=== PATIENT | female | born 1960 | race Caucasian/White ===

== ENCOUNTER → 2017-01-31 | Outpatient (CLI) | payer OTHER ==
[~2017-01-31] MED LIST: CIPR-225 PO; CIPR500T78 PO; LEVO250T7 PO; LEVO750T6 PO; METR500T PO; OMEP20TA2 PO; SERT50TA2 PO
--- NOTE | 2017-01-31 11:37 | Diagnostic Imaging Report ---
PA and lateral views of the chest Indication: COPD. Comparison 01/02/15. Findings: The lungs are hyperinflated but clear. The heart size is normal. There is no effusion or pneumothorax The mediastinum and yves appear unremarkable. Impression: Hyperinflated clear lungs. Dictated by: Dictated on workstation # [id number]
== END ==
LOC: RAD 10:18
PROVIDERS: ATTEND Surgery
DX: J44.9 Chronic obstructive pulmonary disease, unspecified (principal)
CPT/HCPCS: 71020

== ENCOUNTER 2018-04-21 14:10 | Emergency (ER) | payer MEDICAID, OTHER ==
[~2018-04-21] VITALS: Ht 162.6 cm; Wt 36.3 kg
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
--- OUTSIDE RECORDS SUMMARY | 2018-04-21 14:16 | XMS REPORT ---
Author Author MAYTE MORELAND Organization [facility] Address [address] [place] [address] Care Team Providers Care Cloth Picker Name Role Phone MAYTE MORELAND Unavailable PROBLEMS Type Condition ICD9-CM Code [id number] Code Onset Dates Condition Status SNOMED Code Problem Chronic post-traumatic stress disorder (PTSD) F43.12 Active 599929531 Problem Tetrahydrocannabinol (THC) use disorder, mild, abuse F12.10 Active 21011191 Problem 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 Active 47688245507503542 Problem Bilateral cataracts H26.9 Active 19158664 Problem Alcohol use Z78.9 Active 728387629 Problem Bipolar disorder, unspecified F31.9 Active 52503045 Problem MELIDA (generalized anxiety disorder) F41.1 Active 72090270 Problem Tobacco abuse Z72.0 Active 433926555 Problem Cannabis use disorder, mild, abuse F12.10 Active 38419330 Problem Methamphetamine use disorder, 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 Active 469977212 Problem Suspected chronic obstructive pulmonary disease based on initial evaluation J44.9 Active 865516080 Problem Benzodiazepine abuse F13.10 Active 819775140 Problem Alcohol use disorder, moderate, dependence F10.20 Active 215432979 ALLERGIES No Information ENCOUNTERS Encounter Location Date Diagnosis [facility] [address] [facility] [id number] [address] Mar, [facility] [address] [facility] [id number][place] [id number] Feb, Tobacco abuse Z72.0 [facility] [address] [facility] [id number][place] [id number] 19 Dec, 2017 Suspected chronic obstructive pulmonary disease based on initial evaluation J44.9 [facility] [address] [facility] [id number][place] [id number] 18 Dec, 2017 Hospital discharge follow-up Z09 and Tobacco abuse Z72.0 [facility] [address] [place] [id number] [address] Dec, MELIDA (generalized anxiety disorder) F41.1 ; Bipolar disorder , unspecified F31.9 ; Chronic post-traumatic stress disorder (PTSD) F43.12 ; 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 ; Cannabis use disorder, mild, abuse F12.10 ; Alcohol use disorder, moderate, dependence F10.20 and Benzodiazepine abuse F13.10 [place] [id number] [place] [address] [id number] Nov, [facility] [address] [place] [id number] [place] [address] [id number]- 6475 Nov, MELIDA (generalized anxiety disorder) F41.1 ; Bipolar disorder , unspecified F31.9 ; Chronic post-traumatic stress disorder (PTSD) F43.12 ; Methamphetamine use disorder, 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 ; Cannabis use disorder, mild, abuse F12.10 ; Alcohol use disorder, moderate, dependence F10.20 and Benzodiazepine abuse F13.10 [place] [id number] [place] [address] [id number] Oct, MELIDA (generalized anxiety disorder) F41.1 ; Bipolar disorder, unspecified F31.9 ; Chronic post-traumatic stress disorder (PTSD) F43.12 and Suspected chronic obstructive pulmonary disease based on initial evaluation J44.9 [place] [id number] [place] [address] [id number] August, [place] [id number] [place] [address] [id number] Jul, [place] [id number] [place] [address] [id number] Jul, Well woman exam with routine gynecological exam Z01.419 ; Screening breast examination Z12.31 ; High risk sexual behavior Z72.51 and Colon cancer screening Z12.11 [place] [id number] [place] [address] [id number] Jul, Suspected chronic obstructive pulmonary disease based on initial evaluation J44.9 [place] [id number] [place] [address] [id number] Jul, Bipolar disorder, unspecified F31.9 ; MELIDA (generalized anxiety disorder) F41.1 ; Chronic post-traumatic stress disorder (PTSD) F43.12 ; Alcohol use Z78.9 ; History of hepatitis C Z86.19 ; 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 ; Tetrahydrocannabinol (THC) use disorder, mild, abuse F12.10 ; Suspected chronic obstructive pulmonary disease based on initial evaluation J44.9 ; Tobacco abuse Z72.0 and Tobacco abuse counseling Z71.6 [place] [address] [place] [id number] [place] [address] 49896- 4089 Jul, [place] [address] [place] [id number] [place] [address] 13137- 2999 May, [place] [address] [place] [id number] [place] [address] 91649- 1192 Apr, [place] [address] [place] [id number] [place] [address] 33566- 5694 Mar, [place] [address] [place] [id number] [place] [address] 00478- 4999 Mar, [place] [address] [place] [id number] [place] [address] 48173- 7936 Mar, Bipolar disorder, unspecified F31.9 ; Chronic post- traumatic stress disorder (PTSD) F43.12 ; MELIDA (generalized anxiety disorder) F41.1 and Alcohol use Z78.9 [place] [address] [place] [address] 64251- 1762 Jan, Bipolar disorder, unspecified F31.9 ; MELIDA (generalized anxiety disorder) F41.1 ; Alcohol use Z78.9 and Chronic post-traumatic stress disorder (PTSD) F43.12 [place] [address] [place] [id number] [place] [address] 70269- 0591 Dec, UTI (urinary tract infection) 599.0 and Indigestion 536.8 [place] [address] [place] [id number] [place] [address] 11209- 7792 Dec, [place] [address] [place] [id number] [place] [address] [id number] 2389 Nov, Change in vision 368.9 ; Hep C w/o coma, chronic 070.54 ; Family history of early CAD V17.3 and Family history of diabetes mellitus V18.0 [facility] [address] [place] [address] [id number] [place] [address] 19213- 5883 Nov, Encounter to establish care V65.8 ; Hepatitis C 070.70 ; Alcohol abuse 305.00 ; Drug abuse 305.90 and Anxiety 300.00 [facility] [address] [place] [id number] [place] [address] 91368- 0413 Nov, Depressive disorder, not elsewhere classified 311 ; Anxiety disorder, unspecified 300.00 and Alcoholism in recovery 303.90 [facility] [address] [place] [id number] [place] [address] 13676- 5530 Oct, Depressive disorder, not elsewhere classified 311 ; Anxiety disorder, unspecified 300.00 and Alcoholism in recovery 303.90 [facility] [id number] [place] [address] [id number] August, [facility] [address] [id number] [place] [address] [id number] Jul, [facility] [address] [place] [address] [id number] [place] [address] 48439- 7847 Jul, [facility] [address] [place] [id number] [place] [address] 73572- 8145 Jul, [facility] [id number] [place] [address] [id number] Apr, [facility] [address] [place] [id number] [place] [address] 88509 2546 Apr, [facility] [id number] [place] [address] [id number] Mar, [facility] [address] [place] [address] [id number] [place] [address] 06779 2546 Mar, [facility] [id number] [place] [address] [id number] Feb, [facility] [address] [facility] [id number] [address]- 1686 Feb, [facility] [address] [id number] [place] [id number] Feb, [facility] [address] [facility] [id number] [place] [address]- 2546 Feb, [facility] [address] [id number][place] [id number] Jan, [facility] [address] [facility] [id number] [address] 2546 Jan, [facility] [address] [facility] [id number][place] [id number] Jan, [facility] [address] [facility] [id number] [place] [address]- 6776 Jan, [facility] [address]65[address] [address]- 1418 Oct, [facility] [address] [facility] [id number] [place] [address]- 2912 Jul, [facility] [address] [place] [id number] [address]- 3544 Jun, [facility] [address] [place] [id number] [address]- 7302 May, [facility] [address] [place] [id number] [address]- 6517 May, [facility] [address] [facility] [id number] [place] [address]- 3195 May, [facility] [address] [facility] [id number] [address]- 9336 Apr, [facility] [address] [id number] [place] [id number] Apr, [facility] [address] [id number][place] [id number] Apr, [facility] [address] [id number] [place] [id number] Apr, [facility] [address] [facility] [id number] [place] [phone] Apr, [facility] [address] [id number] [address]- 4109 Mar, [facility] [address] [address]- 9450 Mar, [facility] [address] [id number] [address]- 5710 Mar, [facility] [address] [address]- 7183 Feb, [facility] [address] [id number] [address]- 1135 Feb, [facility] [address] [id number] [address]- 9943 Feb, IMMUNIZATIONS No Known Immunizations SOCIAL HISTORY Never Assessed REASON FOR VISIT PLAN OF CARE VITAL SIGNS MEDICATIONS Unknown Medications RESULTS No Results PROCEDURES No Known procedures [...]
--- OUTSIDE RECORDS SUMMARY | 2018-04-21 14:16 | XMS REPORT ---
Author Author JESSA MATTA [facility] Address [address] [place] [address] Care Team Providers Care Race Board Attendant Name Role Phone JESSA MATTA Unavailable PROBLEMS Type Condition ICD9-CM Code OXT40-UD Code Onset Dates Condition Status SNOMED Code Problem Chronic post-traumatic stress disorder (PTSD) F43.12 Active 385075236 Problem Tetrahydrocannabinol (THC) use disorder, mild, abuse F12.10 Active 74689358 Problem 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 Active [id number] Problem Bilateral cataracts H26.9 Active 52553611 Problem Alcohol use Z78.9 Active 567835286 Problem Bipolar disorder, unspecified F31.9 Active 88360102 Problem MELIDA (generalized anxiety disorder) F41.1 Active 19105988 Problem Tobacco abuse Z72.0 Active 065503580 Problem Cannabis use disorder, mild, abuse F12.10 Active 80219850 Problem Methamphetamine use disorder, 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 [id number] [address] Mar, [facility] [address] [facility] [id number] [id number] 19 Dec, 2017 Suspected chronic obstructive pulmonary disease based on initial evaluation J44.9 [facility] [address] [id number] [id number] 18 Dec, 2017 Hospital discharge follow-up Z09 and Tobacco abuse Z72.0 [facility] [address] [id number] [address] Dec, MELIDA (generalized anxiety disorder) F41.1 ; Bipolar disorder , unspecified F31.9 ; Chronic post-traumatic stress disorder (PTSD) F43.12 ; 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 ; Cannabis use disorder, mild, abuse F12.10 ; Alcohol use disorder, moderate, dependence F10.20 and Benzodiazepine abuse F13.10 [facility] [address] [place] [address] [id number] Nov, [facility] [address] [place] [address]1993- 7141 Nov, MELIDA (generalized anxiety disorder) F41.1 ; Bipolar disorder , unspecified F31.9 ; Chronic post-traumatic stress disorder (PTSD) F43.12 ; Methamphetamine use disorder, 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 ; Cannabis use disorder, mild, abuse F12.10 ; Alcohol use disorder, moderate, dependence F10.20 and Benzodiazepine abuse F13.10 [address] [place] [address] [id number] Oct, MELIDA (generalized anxiety disorder) F41.1 ; Bipolar disorder, unspecified F31.9 ; Chronic post-traumatic stress disorder (PTSD) F43.12 and Suspected chronic obstructive pulmonary disease based on initial evaluation J44.9 [id number] [place] [address] [id number] August, [address] [id number] [place] [address] [id number] Jul, [place] [id number] [place] [address] [id number] Jul, Well woman exam with routine gynecological exam Z01.419 ; Screening breast examination Z12.31 ; High risk sexual behavior Z72.51 and Colon cancer screening Z12.11 [address] [place] [address] [id number] Jul, Suspected chronic obstructive pulmonary disease based on initial evaluation J44.9 [id number] [place] [address] [id number] Jul, Bipolar disorder, unspecified F31.9 ; MELIDA (generalized anxiety disorder) F41.1 ; Chronic post-traumatic stress disorder (PTSD) F43.12 ; Alcohol use Z78.9 ; History of hepatitis C Z86.19 ; 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 ; Tetrahydrocannabinol (THC) use disorder, mild, abuse F12.10 ; Suspected chronic obstructive pulmonary disease based on initial evaluation J44.9 ; Tobacco abuse Z72.0 and Tobacco abuse counseling Z71.6 [place] [id number] [place] [address] 51568- 4952 Jul, [place] [address] [address] May, [place] [id number] [place] [address] 50644- 2434 Apr, [place] [address] [address]- [address]459 Mar, [place] [address] [address]- [address] Mar, [place] [address] [address]68- 7779 Mar, Bipolar disorder, unspecified F31.9 ; Chronic post- traumatic stress disorder (PTSD) F43.12 ; MELIDA (generalized anxiety disorder) F41.1 and Alcohol use Z78.9 [place] [id number] [place] [address] 75316- 0616 Jan, Bipolar disorder, unspecified F31.9 ; MELIDA (generalized anxiety disorder) F41.1 ; Alcohol use Z78.9 and Chronic post-traumatic stress disorder (PTSD) F43.12 [place] [id number] [place] [address] 32945- 5027 Dec, UTI (urinary tract infection) 599.0 and Indigestion 536.8 [place] [id number] [place] [address] 38096- 7889 Dec, [place] [id number] [place] [address] 38492- 9239 Nov, Change in vision 368.9 ; Hep C w/o coma, chronic 070.54 ; Family history of early CAD V17.3 and Family history of diabetes mellitus V18.0 [facility] [id number] [place] [address] 76635- 2546 Nov, Encounter to establish care V65.8 ; Hepatitis C 070.70 ; Alcohol abuse 305.00 ; Drug abuse 305.90 and Anxiety 300.00 [facility] [id number] [place] [address] 79949- 7633 Nov, Depressive disorder, not elsewhere classified 311 ; Anxiety disorder, unspecified 300.00 and Alcoholism in recovery 303.90 [facility] [id number] [place] [address] 26385- 2896 Oct, Depressive disorder, not elsewhere classified 311 ; Anxiety disorder, unspecified 300.00 and Alcoholism in recovery 303.90 [facility] [id number] [place] [address] [id number] August, [facility] [id number] [place] [address] [id number] Jul, [facility] [id number] [place] [address] 83807- 9600 Jul, [facility] [id number] [place] [address] 64640- 5429 Jul, [facility] [address] [place] [address] [id number] Apr, [facility] [id number] [place] [address] 37605- 5066 Apr, [facility] [id number] [place] [address] [id number] Mar, [facility] [id number] [place] [address] 52071- 2680 Mar, [facility] [id number] [place] [address] [id number] Feb, [facility] [id number] [place] [address] 32150- 3566 Feb, [facility] [address] [id number] [place] [id number] Feb, [facility] [address] [facility] [id number], [place] [address] Feb, [facility] [address] [id number] [place] [id number] Jan, [facility] [address] [facility] [id number], [place] [address] Jan, [facility] [address] [id number] [id number] Jan, [facility] [place] [facility] [address] [facility] [id number] [place] [address] 3[address] Jan, [facility] [place] [facility] [address] [facility] [id number], [place] [address]- 7694 Oct, [facility] [place] [facility] [address], [place] [address] Jul, [facility] [place] [facility] [address] [facility] [id number], [place] [address]- 7909 Jun, [facility] [place] [facility] [address] [id number], [place] [address]24 May, [facility] [place] [facility] [address] [facility] [id number], [place] [address] 7270 May, [facility] [place] [facility] [address] [facility] [id number], [place] [address]- 2[address] May, [facility] [place] [facility] [address] [facility] [id number], [place] [address]797 Apr, [facility] [address] [id number] [place] [id number] Apr, [facility] [address] [id number] [place] [id number] Apr, [facility] [address] [id number] [place] [id number] Apr, [facility] [address] [id number] [id number] Apr, [facility] [address] [facility] [id number], [place] [address]- [address] Mar, [facility] [address] [id number], [place] [address] 3678 Mar, [facility] [address] [facility] [id number], [place] [address]- 9344 Mar, [facility] [address], [place] [address] 38[address] Feb, [facility] [address] [id number], [place] [address]- 0444 Feb, [facility] [address] [id number], [place] [address] 0500 Feb, IMMUNIZATIONS No Known Immunizations SOCIAL HISTORY Never Assessed REASON FOR VISIT Refill request PLAN OF CARE VITAL SIGNS MEDICATIONS Medication Instructions Dosage Frequency Start Date End Date Duration Status ProAir HFA 108 (90 Base) MCG/ACT Inhalation every 6 hrs 2 puffs as needed 6h 0 days Active RESULTS No Results PROCEDURES No [...]
--- OUTSIDE RECORDS SUMMARY | 2018-04-21 14:17 | XMS REPORT ---
Author Author ANAHI CARRILLO Organization [facility] Address [address] [place] [address] Care Team Providers Care Film Vault Supervisor Name Role Phone LILLYMELVIN FOURNIERA Unavailable PROBLEMS Type Condition ICD9-CM Code IVB63-VW Code Onset Dates Condition Status SNOMED Code Problem Chronic post-traumatic stress disorder (PTSD) F43.12 Active 703535370 Problem Tetrahydrocannabinol (THC) use disorder, mild, abuse F12.10 Active 49779828 Problem 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 Active 01543121040750137 Problem Bilateral cataracts H26.9 Active 70208596 Problem Alcohol use Z78.9 Active 956983166 Problem Bipolar disorder, unspecified F31.9 Active 84913804 Problem MELIDA (generalized anxiety disorder) F41.1 Active 84685176 Problem Tobacco abuse Z72.0 Active 315543856 Problem Cannabis use disorder, mild, abuse F12.10 Active 41845459 Problem Methamphetamine use disorder, 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 Active 815296229 Problem Suspected chronic obstructive pulmonary disease based on initial evaluation J44.9 Active 248530966 Problem Benzodiazepine abuse F13.10 Active 183469641 Problem Alcohol use disorder, moderate, dependence F10.20 Active 657468909 ALLERGIES No Known Allergies ENCOUNTERS Encounter Location Date Diagnosis [facility] [address] [facility] [id number] [address] Mar, [facility] [address] [facility] [id number] [id number] 19 Dec, 2017 Suspected chronic obstructive pulmonary disease based on initial evaluation J44.9 [facility] [address] [facility] [id number] [id number] 18 Dec, 2017 Hospital discharge follow-up Z09 and Tobacco abuse Z72.0 [facility] [address] [id number] [address] 13 Dec, 2017 MELIDA (generalized anxiety disorder) F41.1 ; Bipolar disorder , unspecified F31.9 ; Chronic post-traumatic stress disorder (PTSD) F43.12 ; 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 ; Cannabis use disorder, mild, abuse F12.10 ; Alcohol use disorder, moderate, dependence F10.20 and Benzodiazepine abuse F13.10 [facility] [id number] [place] [address] [id number] Nov, [facility] [address] [place] [address] 085451- 3295 Nov, MELIDA (generalized anxiety disorder) F41.1 ; Bipolar disorder , unspecified F31.9 ; Chronic post-traumatic stress disorder (PTSD) F43.12 ; Methamphetamine use disorder, 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 ; Cannabis use disorder, mild, abuse F12.10 ; Alcohol use disorder, moderate, dependence F10.20 and Benzodiazepine abuse F13.10 [address] [place] [address] [id number] Oct, MELIDA (generalized anxiety disorder) F41.1 ; Bipolar disorder, unspecified F31.9 ; Chronic post-traumatic stress disorder (PTSD) F43.12 and Suspected chronic obstructive pulmonary disease based on initial evaluation J44.9 [id number] [place] [address] [id number] August, [id number] [place] [address] [id number] Jul, [id number] [place] [address] [id number] Jul, Well woman exam with routine gynecological exam Z01.419 ; Screening breast examination Z12.31 ; High risk sexual behavior Z72.51 and Colon cancer screening Z12.11 [address] [place] [address] [id number] Jul, Suspected chronic obstructive pulmonary disease based on initial evaluation J44.9 [id number] [place] [address] [id number] Jul, Bipolar disorder, unspecified F31.9 ; MELIDA (generalized anxiety disorder) F41.1 ; Chronic post-traumatic stress disorder (PTSD) F43.12 ; Alcohol use Z78.9 ; History of hepatitis C Z86.19 ; 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 ; Tetrahydrocannabinol (THC) use disorder, mild, abuse F12.10 ; Suspected chronic obstructive pulmonary disease based on initial evaluation J44.9 ; Tobacco abuse Z72.0 and Tobacco abuse counseling Z71.6 [place] [id number] [place] [address] 06625- 3887 Jul, [place] [address] [address]- 7916 May, [place] [address] 45956- 9727 Apr, [place] [address] 75688- 5316 Mar, [place] [address] 43792- 2181 Mar, [place] [address] 29897- 9893 Mar, Bipolar disorder, unspecified F31.9 ; Chronic post- traumatic stress disorder (PTSD) F43.12 ; MELIDA (generalized anxiety disorder) F41.1 and Alcohol use Z78.9 [place] [id number] [place] [address] 49625- 7415 Jan, Bipolar disorder, unspecified F31.9 ; MELIDA (generalized anxiety disorder) F41.1 ; Alcohol use Z78.9 and Chronic post-traumatic stress disorder (PTSD) F43.12 [place] [id number] [place] [address] 35160- 0152 Dec, UTI (urinary tract infection) 599.0 and Indigestion 536.8 [place] [id number] [place] [address] 61982- 3933 Dec, [place] [id number] [place] [address] 76797- 0733 Nov, Change in vision 368.9 ; Hep C w/o coma, chronic 070.54 ; Family history of early CAD V17.3 and Family history of diabetes mellitus V18.0 [facility] [address], [place] [address]- 1146 Nov, Encounter to establish care V65.8 ; Hepatitis C 070.70 ; Alcohol abuse 305.00 ; Drug abuse 305.90 and Anxiety 300.00 [facility] [id number] [place] [address] 05073- 4700 Nov, Depressive disorder, not elsewhere classified 311 ; Anxiety disorder, unspecified 300.00 and Alcoholism in recovery 303.90 [facility] [id number] [place] [address] 32153- 9044 Oct, Depressive disorder, not elsewhere classified 311 ; Anxiety disorder, unspecified 300.00 and Alcoholism in recovery 303.90 [facility] [address] [place] [address] [id number] August, [facility] [id number] [place] [address] [id number] Jul, [facility] [id number] [place] [address] 09846- 1876 Jul, [facility] [id number] [place] [address] 55533- 1126 Jul, [facility] [address] [place] [address] [id number] Apr, [facility] [address] [place] [address] 43780 2546 Apr, [facility] [id number] [place] [address] [id number] Mar, [facility] [id number] [place] [address] 68825 2546 Mar, [facility] [address] [place] [address] [id number] Feb, [facility] [address] [place] [address] 93422- 2546 Feb, [facility] [id number] [place] [address] [id number] Feb, [facility] [address] [facility] [id number] [address]- 3906 Feb, [facility] [address] [id number] [place] [id number] Jan, [facility] [address] [facility] [id number], [place] [address]- 9306 Jan, [facility] [address] [id number] [place] [id number] Jan, [facility] [address] [facility] [id number] [place] [address]- 9678 Jan, [facility] [place] [facility] [address] [facility] [id number], [place] [address]- 1854 Oct, [facility] [address], [place] [address]- 8398 Jul, [facility] [place] [facility] [address]100[place], [place] [address]- 7082 Jun, [facility] [address] [id number], [place] [address]- 5985 May, [facility] [place] [facility] [address] [id number], [place] [address]- 2145 May, [facility] [address], [place] [address]- 5366 May, [facility] [place] [facility] [address] [facility] [id number], [place] [address]- 4303 Apr, [facility] [address] [id number] [place] [id number] Apr, [facility] [address] [id number] [place] [id number] Apr, [facility] [address] [id number] [place] [id number] Apr, [facility] [address] [id number] [place] [id number] Apr, [facility] [address] [facility] [id number][place] [address]- 8448 Mar, [facility] [address] [facility] [id number][place] [address]- 1870 Mar, [facility] [address] [facility] [id number], [place] [address]- 5023 Mar, [facility] [address] [id number], [place] [address]- 3836 Feb, [facility] [address] [facility] [id number][place] 1275[place]- 2163 Feb, [facility] [address] [facility] [id number], [place] [address]- 3630 Feb, IMMUNIZATIONS No Known Immunizations SOCIAL HISTORY Never Assessed REASON FOR VISIT intake [place] PLAN OF CARE Activity Details Follow Up 4 Weeks Reason: VITAL SIGNS Height 65 in 2017-12-04 Weight 94.6 lbs 2017-12-04 Heart Rate 72 bpm 2017-12-04 Respiratory Rate 18 2017-12-04 BMI 15.74 kg/m2 2017-12-04 Blood pressure systolic 144 mmHg 2017-12-04 Blood pressure diastolic 80 mmHg 2017-12-04 MEDICATIONS Medication Instructions Dosage Frequency Start Date End Date Duration Status Abilify 30 MG Orally Once a day 1 tablet 24h 30 days Active ProAir HFA 108 (90 Base) MCG/ACT Inhalation every 6 hrs 2 puffs as needed 6h 0 days Active BuSpar 15 MG Orally Three times a day 1 tablet 8h Oct, 30 days Active RESULTS No Results PROCEDURES [...]
--- OUTSIDE RECORDS SUMMARY | 2018-04-21 14:17 | XMS REPORT ---
Author Author MAYTE MORELAND Organization [facility] Address [address] [place] [address] Care Team Providers Care Pulp Cooker Name Role Phone MAYTE MORELAND Unavailable PROBLEMS Type Condition ICD9-CM Code [id number] Code Onset Dates Condition Status SNOMED Code Problem Bipolar disorder, unspecified F31.9 Active 08309767 Problem 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 Active [id number] Problem Chronic post-traumatic stress disorder (PTSD) F43.12 Active 215152168 Problem Bilateral cataracts H26.9 Active 23086587 Problem Alcohol use Z78.9 Active 907391897 Problem MELIDA (generalized anxiety disorder) F41.1 Active 62152845 Problem Cannabis use disorder, mild, abuse F12.10 Active 35851441 Problem Benzodiazepine abuse F13.10 Active 661444126 Problem Tetrahydrocannabinol (THC) use disorder, mild, abuse F12.10 Active 05903388 Problem Suspected chronic obstructive pulmonary disease based on initial evaluation J44.9 Active 500766823 Problem Alcohol use disorder, moderate, dependence F10.20 Active 159280913 Problem Methamphetamine use disorder, 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 Active 390642078 ALLERGIES No Information ENCOUNTERS Encounter Location Date Diagnosis [place] [address] [facility] [id number] [id number] [address] Mar, [facility] [address] [facility] [id number] [id number] Dec, [facility] [id number] [place] [address] [id number]- 9338 Dec, MELIDA (generalized anxiety disorder) F41.1 ; Bipolar disorder , unspecified F31.9 ; Chronic post-traumatic stress disorder (PTSD) F43.12 ; 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 ; Cannabis use disorder, mild, abuse F12.10 ; Alcohol use disorder, moderate, dependence F10.20 and Benzodiazepine abuse F13.10 [facility] [address] [id number] [id number] Nov, [facility] [address]100[place] [address] Nov, MELIDA (generalized anxiety disorder) F41.1 ; Bipolar disorder , unspecified F31.9 ; Chronic post-traumatic stress disorder (PTSD) F43.12 ; Methamphetamine use disorder, 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 ; Cannabis use disorder, mild, abuse F12.10 ; Alcohol use disorder, moderate, dependence F10.20 and Benzodiazepine abuse F13.10 [facility] [address] [id number] [id number] Oct, MELIDA (generalized anxiety disorder) F41.1 ; Bipolar disorder, unspecified F31.9 ; Chronic post-traumatic stress disorder (PTSD) F43.12 and Suspected chronic obstructive pulmonary disease based on initial evaluation J44.9 [facility] [address]00565100[place] [id number] August, [facility] [address]00565100[place] [id number] Jul, [address] [place] [id number] Jul, Well woman exam with routine gynecological exam Z01.419 ; Screening breast examination Z12.31 ; High risk sexual behavior Z72.51 and Colon cancer screening Z12.11 [address]00565100[place] [id number] Jul, Suspected chronic obstructive pulmonary disease based on initial evaluation J44.9 [place] [id number] [place] [address] [id number] Jul, Bipolar disorder, unspecified F31.9 ; MELIDA (generalized anxiety disorder) F41.1 ; Chronic post-traumatic stress disorder (PTSD) F43.12 ; Alcohol use Z78.9 ; History of hepatitis C Z86.19 ; 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 ; Tetrahydrocannabinol (THC) use disorder, mild, abuse F12.10 ; Suspected chronic obstructive pulmonary disease based on initial evaluation J44.9 ; Tobacco abuse Z72.0 and Tobacco abuse counseling Z71.6 [place] [address]00565100[place] [address] Jul, [place] [address] [id number] [place] [address] 17998- 6610 May, [place] [address] [place] [address] 59087- 8100 Apr, [place] [id number] [place] [address] 52620- 7986 Mar, [place] [address] [place] [address] 85050- 9070 Mar, [place] [address] [id number] [place] [address] 83790- 1723 Mar, Bipolar disorder, unspecified F31.9 ; Chronic post- traumatic stress disorder (PTSD) F43.12 ; MELIDA (generalized anxiety disorder) F41.1 and Alcohol use Z78.9 [place] [address] [id number] [place] [address] 04102- 5921 Jan, Bipolar disorder, unspecified F31.9 ; MELIDA (generalized anxiety disorder) F41.1 ; Alcohol use Z78.9 and Chronic post-traumatic stress disorder (PTSD) F43.12 [place] [address] [place] [address] 22641- 7403 Dec, UTI (urinary tract infection) 599.0 and Indigestion 536.8 [place] [address] [place] [address] 59413- 5959 Dec, [place] [address] [place] [address] 84706- 8073 Nov, Change in vision 368.9 ; Hep C w/o coma, chronic 070.54 ; Family history of early CAD V17.3 and Family history of diabetes mellitus V18.0 [address] [place] [address] 16356- 7642 11 Nov, 2014 Encounter to establish care V65.8 ; Hepatitis C 070.70 ; Alcohol abuse 305.00 ; Drug abuse 305.90 and Anxiety 300.00 [facility] [address]005[address]100[place] [address] Nov, Depressive disorder, not elsewhere classified 311 ; Anxiety disorder, unspecified 300.00 and Alcoholism in recovery 303.90 [facility] [id number] [place] [address] 12633- 3946 Oct, Depressive disorder, not elsewhere classified 311 ; Anxiety disorder, unspecified 300.00 and Alcoholism in recovery 303.90 [facility] [id number] [id number] August, [facility] [id number] [place] [address] [id number] Jul, [facility] [id number] [place] [address] 83853- 6796 Jul, [facility] [id number] [place] [address] 14628- 3176 Jul, [facility] [id number], [place] [id number] Apr, [facility] [address] [place] [address] 325536 Apr, [facility] [id number], [place] [id number] Mar, [facility] [address]005[address]100[place] [address] Mar, [facility] [id number], [place] [id number] Feb, [facility] [address]005[address]100[place], [place] [address] 2546 Feb, [facility] [id number], [place] [id number] Feb, [facility] [address]005[address]100[place], [place] [address] 2546 Feb, [facility] [address] [id number] [id number] Jan, [facility] [address] [id number] [place] [address] Jan, [facility] [address] [facility] [id number] [place] [id number] Jan, [facility] [place] [facility] [address] [facility] [id number] [place] [address]- 2624 Jan, [facility] [place] [facility] [address] [facility] [id number] [place] [address]- 7515 Oct, [facility] [place] [facility] [address] [facility] [id number] [place] [address]- 7107 Jul, [facility] [place] [facility] [address] [facility] [id number] [place] [address]- 8417 Jun, [facility] [place] [facility] [address]005[address], [place] [address] 3988 May, [facility] [place] [facility] [address] [id number] [address] 1996 May, [facility] [place] [facility] [address]005[address], [place] [address]- 3898 May, [facility] [place] [facility] [address]00565100[place], [place] [address]- 1205 Apr, [facility] [address] [id number] [place] [id number] Apr, [facility] [address] [facility] [id number], [place] [id number] Apr, [facility] [address] [id number] [place] [id number] Apr, [facility] [address] [facility] [id number] [place] [id number] Apr, [facility] [place] [facility] [address] [facility] [id number], [place] [address]- 0989 Mar, [facility] [place] [facility] [address]005[address]100[place] [address]04[address] 6404 Mar, [facility] [address] [facility] [id number] [place] [address]- 1058 Mar, [facility] [address] [facility] [id number], [place] [address]- 0296 Feb, [facility] [address] [facility] [id number][place] [address]- 1089 Feb, [facility] [address] [facility] [id number][place] [address]- 4409 Feb, IMMUNIZATIONS No Known Immunizations SOCIAL HISTORY Never Assessed REASON FOR VISIT PALS received PLAN OF CARE VITAL SIGNS MEDICATIONS Unknown [...]
--- OUTSIDE RECORDS SUMMARY | 2018-04-21 14:17 | XMS REPORT ---
Author Author MAYTE MORELAND Organization 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 Active 53162391773253255 Problem Tetrahydrocannabinol (THC) use disorder, mild, abuse F12.10 Active 48043200 Problem Chronic post-traumatic stress disorder (PTSD) F43.12 Active 516345746 Problem Bipolar disorder, unspecified F31.9 Active 74288259 Problem Suspected chronic obstructive pulmonary disease based on initial evaluation J44.9 Active 656787804 Problem Alcohol use Z78.9 Active 335232898 ALLERGIES No Information ENCOUNTERS Encounter Location Date Diagnosis [facility] [address] [id number] [address] Nov, [facility] [id number] [place] [address] [id number] Oct, MELIDA (generalized anxiety disorder) F41.1 ; Bipolar disorder, unspecified F31.9 ; Chronic post-traumatic stress disorder (PTSD) F43.12 and Suspected chronic obstructive pulmonary disease based on initial evaluation J44.9 [facility] [id number] [id number] August, [facility] [id number] [place] [address] [id number] Jul, [facility] [id number] [place] [address] [id number] Jul, Well woman exam with routine gynecological exam Z01.419 ; Screening breast examination Z12.31 ; High risk sexual behavior Z72.51 and Colon cancer screening Z12.11 [facility] [address] [facility] [id number] [place] [id number] Jul, Suspected chronic obstructive pulmonary disease based on initial evaluation J44.9 [facility] [address] [place] [address] [id number] [place] [id number] Jul, Bipolar disorder, unspecified F31.9 ; MELIDA (generalized anxiety disorder) F41.1 ; Chronic post-traumatic stress disorder (PTSD) F43.12 ; Alcohol use Z78.9 ; History of hepatitis C Z86.19 ; 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 ; Tetrahydrocannabinol (THC) use disorder, mild, abuse F12.10 ; Suspected chronic obstructive pulmonary disease based on initial evaluation J44.9 ; Tobacco abuse Z72.0 and Tobacco abuse counseling Z71.6 [place] [address] [place] [id number] [place] [address] 91915- 7956 Jul, [place] [address] [address] [id number] [place] [address] 55237- 7240 14 May, 2016 [place] [address] [id number] [place] [address] 39371- 4395 Apr, [place] [address] [id number] [place] [address] 50202- 6152 Mar, [place] [id number] [place] [address] 22668- 5437 Mar, [place] [address] [address] [id number] [place] [address] 33824- 5617 Mar, Bipolar disorder, unspecified F31.9 ; Chronic post- traumatic stress disorder (PTSD) F43.12 ; MLEIDA (generalized anxiety disorder) F41.1 and Alcohol use Z78.9 [place] [address] [id number] [place] [address] 58512- 3865 Jan, Bipolar disorder, unspecified F31.9 ; MELIDA (generalized anxiety disorder) F41.1 ; Alcohol use Z78.9 and Chronic post-traumatic stress disorder (PTSD) F43.12 [place] [address] [id number] [address]- [address] Dec, UTI (urinary tract infection) 599.0 and Indigestion 536.8 [facility] [id number] [place] [address] 53146- 6553 Dec, [facility] [address] [place] [address] 82459- 2719 Nov, Change in vision 368.9 ; Hep C w/o coma, chronic 070.54 ; Family history of early CAD V17.3 and Family history of diabetes mellitus V18.0 [place] [address] [id number] [place] [address] 31832- 8281 Nov, Encounter to establish care V65.8 ; Hepatitis C 070.70 ; Alcohol abuse 305.00 ; Drug abuse 305.90 and Anxiety 300.00 [place] [id number] [place] [address] 57335- 8140 Nov, Depressive disorder, not elsewhere classified 311 ; Anxiety disorder, unspecified 300.00 and Alcoholism in recovery 303.90 [facility] [id number] [place] [address] 16965- 2046 Oct, Depressive disorder, not elsewhere classified 311 ; Anxiety disorder, unspecified 300.00 and Alcoholism in recovery 303.90 [address]00565100[place] [id number] August, [address] [place] [address] [id number] Jul, [facility] [address] [place] [address] 01035- 8841 Jul, [facility] [address] [place] [address] 12947- 0022 Jul, [address] [place] [address] [id number] Apr, [facility] [address]00565100[place], [place] [address]- 7299 Apr, [place] [id number] [id number] Mar, [facility] [address] [facility] [id number] [address]- 2546 Mar, [facility] [address] [facility] [id number] [place] [id number] Feb, [facility] [address] [facility] [id number] [address]- 2546 Feb, [facility] [address] [facility] [id number] [place]AP[place] [id number] Feb, [facility] [address] [facility] [id number] [address]- 2546 Feb, [facility] [address] [facility] [id number] RAPIDS[place] [id number] Jan, [facility] [address]00565100[place], [place] [address]- 2546 Jan, [facility] [address] [place] [address] [id number] [place] [id number] Jan, [facility] [place] [facility] [address]00565100[place], [place] [address]- 2125 Jan, [facility] [place] [facility] [address]005[address]100[place], [place] [address]- 1756 Oct, [facility] [place] [facility] [address]005[address]100[place], [place] [address]- 9506 Jul, [facility] [place] [facility] [address]005[address]100[place], [place] [address]- 2546 Jun, [facility] [place] [facility] [address] [facility] [id number] [address]- 8017 May, [facility] [place] [facility] [address] [id number], [place] [address]- 3636 May, [facility] [place] [facility] [address] [id number] [address]- 0916 May, [facility] [place] [facility] [address] [id number], [place] [address]- 8146 Apr, [facility] [address] [id number] [place] [id number] Apr, [facility] [address] [id number] [place] [address] Apr, [facility] [address] [id number] [place] [id number] Apr, [facility] [address] [id number] [place] [id number] Apr, [facility] [address]005[address]100[place], [place] [address]- 4246 Mar, [facility] [id number] [place] [address] 79876- 2415 Mar, [facility] [address] [place] [address] 340019- 0858 Mar, [facility] [address] [place] [address] 042171- 8958 Feb, [facility] [address]005[address]100[place] [address]- 2773 Feb, [facility] [address]005[address]100[place] [address]- 7939 Feb, IMMUNIZATIONS No Known Immunizations SOCIAL HISTORY Never Assessed REASON FOR VISIT PALS PLAN OF CARE VITAL SIGNS MEDICATIONS Unknown Medications RESULTS No Results PROCEDURES No Known procedures INSTRUCTIONS MEDICATIONS ADMINISTERED No Known Medications MEDICAL (GENERAL) HISTORY Type Description Date Medical History chronic obstructive pulmonary disease (COPD) Medical History depression Medical History mood disorder Medical History insomnia Medical History PTSD Medical History alcohol abuse Medical History anxiety Medical History hepatitis C Medical History Alcohol abuse Medical History Syncope Medical History Esophageal reflux Medical History Essential hypertension, malignant Medical History Unspecified peripheral vascular disease Medical History Personal history of tobacco use, presenting hazards to health Medical History Hyperlipidemia Medical History Posttraumatic stress disorder Surgical History hysterectomy at age 27 (Guy) /total due to cancer Hospitalization History UTI stayed a couple of days at 12/2014
--- OUTSIDE RECORDS SUMMARY | 2018-04-21 14:17 | XMS REPORT ---
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 Active [id number] Problem Bilateral cataracts H26.9 Active 93125140 Problem Alcohol use Z78.9 Active 055357461 Problem Bipolar disorder, unspecified F31.9 Active 80857819 Problem MELIDA (generalized anxiety disorder) F41.1 Active 90711345 Problem Tobacco abuse Z72.0 Active 544700922 Problem Cannabis use disorder, mild, abuse F12.10 Active 52992129 Problem Methamphetamine use disorder, 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 Active 712280052 Problem Suspected chronic obstructive pulmonary disease based on initial evaluation J44.9 Active 057835254 Problem Benzodiazepine abuse F13.10 Active 316722614 Problem Alcohol use disorder, moderate, dependence F10.20 Active 113418299 ALLERGIES No Information ENCOUNTERS Encounter Location Date Diagnosis [facility] [address] [facility] [id number] [address] Mar, [facility] [address] [facility] [id number][place] [id number] 19 Dec, 2017 Suspected chronic obstructive pulmonary disease based on initial evaluation J44.9 [facility] 120 [facility] [id number][place] [id number] 18 Dec, 2017 Hospital discharge follow-up Z09 and Tobacco abuse Z72.0 [facility] [address] [facility] [id number] [place] [address] 13 Dec, 2017 MELIDA (generalized anxiety disorder) F41.1 ; Bipolar disorder , unspecified F31.9 ; Chronic post-traumatic stress disorder (PTSD) F43.12 ; 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 ; Cannabis use disorder, mild, abuse F12.10 ; Alcohol use disorder, moderate, dependence F10.20 and Benzodiazepine abuse F13.10 [facility] [id number] [place] [address] [id number] Nov, [facility] [address] [place] [address] [phone] Nov, MELIDA (generalized anxiety disorder) F41.1 ; Bipolar disorder , unspecified F31.9 ; Chronic post-traumatic stress disorder (PTSD) F43.12 ; Methamphetamine use disorder, 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 ; Cannabis use disorder, mild, abuse F12.10 ; Alcohol use disorder, moderate, dependence F10.20 and Benzodiazepine abuse F13.10 [address] [place] [address] [id number] Oct, MELIDA (generalized anxiety disorder) F41.1 ; Bipolar disorder, unspecified F31.9 ; Chronic post-traumatic stress disorder (PTSD) F43.12 and Suspected chronic obstructive pulmonary disease based on initial evaluation J44.9 [address] [place] [address] [id number] August, [place] [id number] [place] [address] [id number] Jul, [place] [id number] [place] [address] [id number] Jul, Well woman exam with routine gynecological exam Z01.419 ; Screening breast examination Z12.31 ; High risk sexual behavior Z72.51 and Colon cancer screening Z12.11 [address] [place] [address] [id number] Jul, Suspected chronic obstructive pulmonary disease based on initial evaluation J44.9 [place] [id number] [place] [address] [id number] Jul, Bipolar disorder, unspecified F31.9 ; MELIDA (generalized anxiety disorder) F41.1 ; Chronic post-traumatic stress disorder (PTSD) F43.12 ; Alcohol use Z78.9 ; History of hepatitis C Z86.19 ; 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 ; Tetrahydrocannabinol (THC) use disorder, mild, abuse F12.10 ; Suspected chronic obstructive pulmonary disease based on initial evaluation J44.9 ; Tobacco abuse Z72.0 and Tobacco abuse counseling Z71.6 [place] [id number] [place] [address] 13781- 9929 Jul, [place] [id number] [place] [address] 73968- 3216 May, [place] [id number] [place] [address] 64445- 4482 Apr, [place] [address] [address] Mar, [place] [id number] [place] [address] 26567- 4304 Mar, [place] [address] [address]- 0309 Mar, Bipolar disorder, unspecified F31.9 ; Chronic post- traumatic stress disorder (PTSD) F43.12 ; MELIDA (generalized anxiety disorder) F41.1 and Alcohol use Z78.9 [place] [id number] [place] [address] 07802- 6627 Jan, Bipolar disorder, unspecified F31.9 ; MELIDA (generalized anxiety disorder) F41.1 ; Alcohol use Z78.9 and Chronic post-traumatic stress disorder (PTSD) F43.12 [place] [id number] [place] [address] 21445- 5527 Dec, UTI (urinary tract infection) 599.0 and Indigestion 536.8 [place] [id number] [place] [address] 85656- 6310 Dec, [place] [id number] [place] [address] 45982- 4433 Nov, Change in vision 368.9 ; Hep C w/o coma, chronic 070.54 ; Family history of early CAD V17.3 and Family history of diabetes mellitus V18.0 [facility] [address] [address] Nov, Encounter to establish care V65.8 ; Hepatitis C 070.70 ; Alcohol abuse 305.00 ; Drug abuse 305.90 and Anxiety 300.00 [facility] [address] [place] [address] 59264- 4185 Nov, Depressive disorder, not elsewhere classified 311 ; Anxiety disorder, unspecified 300.00 and Alcoholism in recovery 303.90 [facility] [id number] [place] [address] 09945- 3565 Oct, Depressive disorder, not elsewhere classified 311 ; Anxiety disorder, unspecified 300.00 and Alcoholism in recovery 303.90 [facility] [address] [place] [address] [phone] August, [facility] [id number] [place] [address] [id number] Jul, [facility] [address] [place] [address] 85281- 5366 Jul, [facility] [id number] [place] [address] 05204 2546 Jul, [facility] [address] [place] [address] [id number] Apr, [facility] [address] [place] [address] 98634 2546 Apr, [facility] [id number] [place] [address] [phone] Mar, [facility] [id number] [place] [address] 85140- 2546 Mar, [facility] [address] [place] [address] [phone] Feb, [facility] [address] [place] [address] 86603- 2546 Feb, [facility] [id number] [place] [address], [place] [id number] Feb, [facility] [address] [facility] [id number] [address] Feb, [facility] [address] [id number] [place] [phone] Jan, [facility] [address] [facility] [id number] [place] [address] Jan, [facility] [address] [id number][place] [phone] Jan, [facility] [address] [facility] [id number] [place] [address] Jan, [facility] [place] [facility] [address] [facility] [id number] [place] [address] 0169 Oct, [facility] [address] [address] Jul, [facility] [place] [facility] [address] [facility] [id number] [place] [address]- 9068 Jun, [facility] [address] [facility] [id number] [place] [address] 40[address] May, [facility] [place] [facility] [address] [facility] [id number] [place] [address] 0447 May, [facility] [address] [address] 2883 May, [facility] [place] [facility] [address] [facility] [id number] [place] [address]- 5859 Apr, [facility] [address] [id number] [place] [id number] Apr, [facility] [address] [id number] [place] [id number] Apr, [facility] [address] [id number][place] [phone] Apr, [facility] [address] [id number][place] [phone] Apr, [facility] [address] [facility] [id number] [place] [address]- 6027 Mar, [facility] [address] [facility] [id number] [place] [address]- 9766 Mar, [facility] [address] [facility] [id number] [place] [address]- 9334 Mar, [facility] [address] [address]- 3046 Feb, [facility] [address] [facility] [id number] [place] [address]- 7485 Feb, [facility] [address] [id number] [address]- 5561 Feb, IMMUNIZATIONS No Known Immunizations SOCIAL HISTORY Never Assessed REASON FOR VISIT f/mary Delgado RN PLAN OF CARE Activity Details Follow Up March Reason: VITAL SIGNS Height 65 in 2018-01-08 Weight 95.5 lbs 2018-01-08 Heart Rate 62 bpm 2018-01-08 Respiratory Rate 18 2018-01-08 BMI 15.89 kg/m2 2018-01-08 Blood pressure systolic 124 mmHg 2018-01-08 Blood pressure diastolic 82 mmHg 2018-01-08 MEDICATIONS Medication Instructions Dosage Frequency Start Date End Date Duration Status ProAir HFA 108 (90 Base) MCG/ACT Inhalation every 6 hrs 2 puffs as needed 6h 0 days Active BusPIRone HCl 30 MG Orally Twice a day 1 tablet 12h Dec, 30 days Active Abilify 30 MG Orally Once a day 1 tablet 24h 30 days Active Lexapro 10 MG Orally Once a day 1 tablet 24h Dec, 30 day(s) Active RESULTS No Results PROCEDURES No Known [...] UTI stayed a couple of days at [facility] 12/2014 Hospitalization History bronchitis 2017
--- OUTSIDE RECORDS SUMMARY | 2018-04-21 14:17 | XMS REPORT ---
Author Author MAYTE MORELAND Organization [facility] Address [address] [place] [address] Care Team Providers Care Library Media Technician Name Role Phone MAYTE MORELAND Unavailable PROBLEMS Type Condition ICD9-CM Code BGV22-SB Code Onset Dates Condition Status SNOMED Code Problem Chronic post-traumatic stress disorder (PTSD) F43.12 Active 879340297 Problem Tetrahydrocannabinol (THC) use disorder, mild, abuse F12.10 Active 17887428 Problem 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 Active 55233081266637560 Problem Bilateral cataracts H26.9 Active 01836585 Problem Alcohol use Z78.9 Active 380419166 Problem Bipolar disorder, unspecified F31.9 Active 36055332 Problem MELIDA (generalized anxiety disorder) F41.1 Active 29416020 Problem Tobacco abuse Z72.0 Active 223977270 Problem Cannabis use disorder, mild, abuse F12.10 Active 35969251 Problem Methamphetamine use disorder, 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 [id number] [place] [id number] 19 Dec, 2017 Suspected chronic obstructive pulmonary disease based on initial evaluation J44.9 [facility] [address] [place] [address] [id number] [place] [id number] 18 Dec, 2017 Hospital discharge follow-up Z09 and Tobacco abuse Z72.0 [facility] [address] [id number], [place] [address] Dec, MELIDA (generalized anxiety disorder) F41.1 ; Bipolar disorder , unspecified F31.9 ; Chronic post-traumatic stress disorder (PTSD) F43.12 ; 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 ; Cannabis use disorder, mild, abuse F12.10 ; Alcohol use disorder, moderate, dependence F10.20 and Benzodiazepine abuse F13.10 [address] [place] [address] [phone] Nov, [facility] [id number] [place] [address] 10817- 8473 Nov, MELIDA (generalized anxiety disorder) F41.1 ; Bipolar disorder , unspecified F31.9 ; Chronic post-traumatic stress disorder (PTSD) F43.12 ; Methamphetamine use disorder, 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 ; Cannabis use disorder, mild, abuse F12.10 ; Alcohol use disorder, moderate, dependence F10.20 and Benzodiazepine abuse F13.[address] [place] [address] [phone] Oct, MELIDA (generalized anxiety disorder) F41.1 ; Bipolar disorder, unspecified F31.9 ; Chronic post-traumatic stress disorder (PTSD) F43.12 and Suspected chronic obstructive pulmonary disease based on initial evaluation J44.9 [place] [id number] [place] [address] [phone] August, [place] [id number] [place] [address] [phone] Jul, [place] [id number] [place] [address] [phone] Jul, Well woman exam with routine gynecological exam Z01.419 ; Screening breast examination Z12.31 ; High risk sexual behavior Z72.51 and Colon cancer screening Z12.11 [place] [id number] [place] [address] [id number] Jul, Suspected chronic obstructive pulmonary disease based on initial evaluation J44.9 [place] [id number] [place] [address] [id number] Jul, Bipolar disorder, unspecified F31.9 ; MELIDA (generalized anxiety disorder) F41.1 ; Chronic post-traumatic stress disorder (PTSD) F43.12 ; Alcohol use Z78.9 ; History of hepatitis C Z86.19 ; 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 ; Tetrahydrocannabinol (THC) use disorder, mild, abuse F12.10 ; Suspected chronic obstructive pulmonary disease based on initial evaluation J44.9 ; Tobacco abuse Z72.0 and Tobacco abuse counseling Z71.6 [place] [id number] [place] [address] 10284- 2640 Jul, [place] [address] [address]- 1757 May, [place] [address] 13226- 2028 Apr, [place] [address] 83613- 3058 Mar, [place] [address] [id number] [place] [address] 17032- 4627 Mar, [place] [id number] [place] [address] 72478- 1849 Mar, Bipolar disorder, unspecified F31.9 ; Chronic post- traumatic stress disorder (PTSD) F43.12 ; MELIDA (generalized anxiety disorder) F41.1 and Alcohol use Z78.9 [place] [id number] [place] [address] 93396- 8725 Jan, Bipolar disorder, unspecified F31.9 ; MELIDA (generalized anxiety disorder) F41.1 ; Alcohol use Z78.9 and Chronic post-traumatic stress disorder (PTSD) F43.12 [place] [id number] [place] [address] 09331- 9562 Dec, UTI (urinary tract infection) 599.0 and Indigestion 536.8 [place] [id number] [place] [address] 21823- 7242 Dec, [place] [id number] [place] [address] 93040- 9459 Nov, Change in vision 368.9 ; Hep C w/o coma, chronic 070.54 ; Family history of early CAD V17.3 and Family history of diabetes mellitus V18.0 [facility] [id number] [place] [address] [id number]- 2118 Nov, Encounter to establish care V65.8 ; Hepatitis C 070.70 ; Alcohol abuse 305.00 ; Drug abuse 305.90 and Anxiety 300.00 [facility] [address] [address]- [address] Nov, Depressive disorder, not elsewhere classified 311 ; Anxiety disorder, unspecified 300.00 and Alcoholism in recovery 303.90 [facility] [address] [address]- [address] Oct, Depressive disorder, not elsewhere classified 311 ; Anxiety disorder, unspecified 300.00 and Alcoholism in recovery 303.90 [facility] [id number] [place] [address] [phone] August, [facility] [id number] [place] [address] [phone] Jul, [facility] [id number] [place] [address] [phone]- 7126 Jul, [facility] [id number] [place] [address] 21962- 0868 Jul, [facility] [id number] [place] [address] [phone] Apr, [facility] [id number] [place] [address] 91666- 8176 Apr, [facility] [id number] [place] [address] [phone] Mar, [facility] [address] [address] 2546 Mar, [facility] [id number] [place] [address] [phone] Feb, [facility] [id number] [place] [address] 61152- 9836 Feb, [place] [address] [id number] [place] [id number] Feb, [facility] [address] [facility] [id number] [address]- 5436 Feb, [facility] [address] [id number] FE[place] [id number] Jan, [facility] [address] [facility] [id number], [place] [address]- 2655 Jan, [facility] [address] [id number] FE[place] [phone] Jan, [facility] [address] [facility] [id number], [place] [address]- 7526 Jan, [facility] [address] [facility] [id number], [place] [address]- 0810 Oct, [facility] [address]00565100[place], [place] [address]- 3739 Jul, [facility] [place] [facility] [address] [facility] [id number], [place] [address]- 3660 Jun, [facility] [address] [id number], [place] [address]- 9641 May, [facility] [address] [facility] [id number], [place] [address]- 1071 May, [facility] [address]00565100[place], [place] [address]- 5120 May, [facility] [address] [facility] [id number], [place] [address]- 7392 Apr, [facility] [address] [id number] [place] [id number] Apr, [facility] [address] [id number] FE[place] [phone] Apr, [facility] [address] [id number] FE[place] [id number] Apr, [facility] [address] [id number] [place] [id number] Apr, [facility] [address] [facility] [id number], [place] [address]- 5417 Mar, [facility] [address] [facility] [id number] 6745 Mar, [facility] [address] [facility] [id number][place]- [address]82 Mar, [facility] [address] [facility] [id number], [place] [address]- 6268 Feb, [facility] [address] [facility] [id number], [place] [address]- 4147 Feb, [facility] [address] [facility] [id number], [place] [address] Feb, IMMUNIZATIONS No Known Immunizations SOCIAL HISTORY Never Assessed REASON FOR VISIT Mood Disorder check up, brought in [employer] paperwork and [employer] paperwork---DALY pena PLAN OF CARE Activity Details Follow Up 4 Weeks Reason:CHM Mood disorder, will need to transition care VITAL SIGNS Height 65 in 2017-11-25 Weight 93 lbs 2017-11-25 Temperature 97.7 degrees Fahrenheit 2017-11-25 Heart Rate 104 bpm 2017-11-25 Respiratory Rate 16 2017-11-25 BMI 15.47 kg/m2 2017-11-25 Blood pressure systolic 130 mmHg 2017-11-25 Blood pressure diastolic 70 mmHg 2017-11-25 MEDICATIONS Medication Instructions Dosage Frequency Start Date End Date Duration Status Abilify 15 mg Orally Once a day at bedtime 1 tablet 30 days Active BuSpar 5 mg Orally Three times a day 1 tablet 8h Oct, 30 days Active ProAir HFA 108 (90 [...]
--- OUTSIDE RECORDS SUMMARY | 2018-04-21 14:18 | XMS REPORT ---
Author Author SON MI [facility] eClinicalWorks Address Unknown Phone Unavailable Care Team Providers Care Yarn Weight And Strength Tester Name Role Phone SON MI CP Unavailable Allergies, Adverse Reactions, Alerts Substance Reaction Event Type N.K.D.A. Info Not Available Non Drug Allergy Problems Problem Type Condition ICD-9 Code Onset Dates Condition Status Assessment Hepatitis C 070.70 Active Problem Other and unspecified alcohol dependence, unspecified drunkenness 303.90 Active Assessment Encounter to establish care V65.8 Active Problem Acute bronchitis 466.0 Active Problem Postnasal drip 784.91 Active Problem Posttraumatic stress disorder 309.81 Active Problem Unspecified episodic mood disorder 296.90 Active Problem Generalized anxiety disorder 300.02 Active Problem Cough 786.2 Active Problem Insomnia, unspecified 780.52 Active Assessment Anxiety 300.00 Active Assessment Drug abuse 305.90 Active Assessment Alcohol abuse 305.00 Active Medications Medication Code System Code Instructions Start Date End Date Status Dosage Sertraline HCl [facility] [address]-27 50 MG Orally Once a day for 4 days and then 1 tab daily Dec 06, 2014 1/2 tab Procedures Procedure Coding System Code Date Office Visit, New Pt., Level 3 CPT-4 57922 Dec 06, 2014 Vital Signs Date/Time: Dec 06, 2014 Temperature 98.2 F Weight 100.5 lbs Height 65 in BMI 16.72 Index Blood Pressure Diastolic 76 mmHg Blood Pressure Systolic 118 mmHg Cardiac Monitoring Heart Rate 68 bpm Results No Known Results Summary Purpose eClinicalWorks Submission
--- OUTSIDE RECORDS SUMMARY | 2018-04-21 14:18 | XMS REPORT ---
Author Author MAYTE MORELAND 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 Active 02601964595014332 Problem Tetrahydrocannabinol (THC) use disorder, mild, abuse F12.10 Active 07842871 Problem Chronic post-traumatic stress disorder (PTSD) F43.12 Active 858317012 Problem Bipolar disorder, unspecified F31.9 Active 46305145 Problem Suspected chronic obstructive pulmonary disease based on initial evaluation J44.9 Active 204141066 Problem Alcohol use Z78.9 Active 825084468 ALLERGIES No Known Allergies ENCOUNTERS Encounter Location Date Diagnosis [place] [id number] [place] [address] [id number] August, [place] [id number] [place] [address] [id number] Jul, [place] [id number] [place] [address] [id number] Jul, Well woman exam with routine gynecological exam Z01.419 ; Screening breast examination Z12.31 ; High risk sexual behavior Z72.51 and Colon cancer screening Z12.11 [address] [place] [id number] [place] [address] [id number] Jul, Suspected chronic obstructive pulmonary disease based on initial evaluation J44.9 [place] [id number] [place] [address] [id number] Jul, Bipolar disorder, unspecified F31.9 ; MELIDA (generalized anxiety disorder) F41.1 ; Chronic post-traumatic stress disorder (PTSD) F43.12 ; Alcohol use Z78.9 ; History of hepatitis C Z86.19 ; 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 ; Tetrahydrocannabinol (THC) use disorder, mild, abuse F12.10 ; Suspected chronic obstructive pulmonary disease based on initial evaluation J44.9 ; Tobacco abuse Z72.0 and Tobacco abuse counseling Z71.6 [place] [id number] [place] [address] 08834- 0767 Jul, [place] [id number] [place] [address] 39826- 5938 May, [place] [id number] [place] [address] 86803- 4092 Apr, [place] [id number] [place] [address] 53260- 8382 Mar, [place] [id number] [place] [address] 92804- 7853 Mar, [place] [address] [id number] [place] [address] 89880- 8627 Mar, Bipolar disorder, unspecified F31.9 ; Chronic post- traumatic stress disorder (PTSD) F43.12 ; MELIDA (generalized anxiety disorder) F41.1 and Alcohol use Z78.9 [place] [id number] [place] [address] 47292- 7326 Jan, Bipolar disorder, unspecified F31.9 ; MELIDA (generalized anxiety disorder) F41.1 ; Alcohol use Z78.9 and Chronic post-traumatic stress disorder (PTSD) F43.12 [place] [id number] [place] [address] 43116- 2582 Dec, UTI (urinary tract infection) 599.0 and Indigestion 536.8 [place] [id number] [place] [address] 22215- 3620 Dec, [place] [id number] [place] [address] 72667- 2792 Nov, Change in vision 368.9 ; Hep C w/o coma, chronic 070.54 ; Family history of early CAD V17.3 and Family history of diabetes mellitus V18.0 [facility] [id number] [place] [address] 17701- 6169 Nov, Encounter to establish care V65.8 ; Hepatitis C 070.70 ; Alcohol abuse 305.00 ; Drug abuse 305.90 and Anxiety 300.00 [facility] [id number] [place] [address] 99734- 4770 Nov, Depressive disorder, not elsewhere classified 311 ; Anxiety disorder, unspecified 300.00 and Alcoholism in recovery 303.90 [facility] [id number] [place] [address] 943651- 3444 Oct, Depressive disorder, not elsewhere classified 311 ; Anxiety disorder, unspecified 300.00 and Alcoholism in recovery 303.90 [facility] [id number] [place] [address] [id number] August, [facility] [id number] [place] [address] [id number] Jul, [facility] [id number] [place] [address] 12753- 7245 Jul, [facility] [id number] [place] [address] [phone]- 8017 Jul, [facility] [address] [place] [address] [id number] Apr, [facility] [id number] [place] [address] 96309- 2192 Apr, [facility] [id number] [place] [address] [id number] Mar, [facility] [address] 44771- 9877 Mar, [facility] [id number] [place] [address] [id number] Feb, [facility] [id number] [place] [address] 10737- 5376 Feb, [facility] [address] [id number] [place] [id number] Feb, [facility] [address] [facility] [id number] [address]- 3686 Feb, [facility] [address] [id number] [place] [id number] Jan, [facility] [address] [facility] [id number] [address]- 7778 Jan, [facility] [address] [id number] [place] [id number] Jan, [facility] [address] [facility] [id number] [place] [address]- 2086 Jan, [facility] [address] [facility] [id number] [place] [address]- 8882 Oct, [facility] [address] [address]- 4131 Jul, [facility] [address] [facility] [id number] [address]- 1470 Jun, [facility] [address] [place] [address] [id number] [address]- 7634 May, [facility] [address] [facility] [id number] [address]- 0138 May, [facility] [address]65[address] [address]- 9293 May, [facility] [address] [facility] [id number] [address]- 8076 Apr, [facility] [address] [id number] [place] [id number] Apr, [facility] [address] [id number] [place] [id number] Apr, [facility] [address] [id number] [place] [id number] Apr, [facility] [address] [id number] [id number] Apr, [facility] [address] [facility] [id number] [address]- 7460 Mar, [facility] [address] [place] [address] [id number] [address]- 4648 Mar, [facility] [address] [id number] [address]- 0944 Mar, [facility] [address] [place] [address] [id number] [address]- 3203 Feb, [facility] [address] [place] [id number] [address]- 3160 Feb, [facility] [address] [place] [id number] [address]- 0137 Feb, IMMUNIZATIONS No Known Immunizations SOCIAL HISTORY Never Assessed REASON FOR VISIT Establish Care- Concerned about mood changes, lots of anxiety, insomnia Carmen BURTON PLAN OF CARE Activity Details Follow Up 1 Month or as indicated by lab Reason:CHM Mood disorder and lab fu ( ANytime for WWE will need to fill out EDW) VITAL SIGNS Height 65 in 2017-07-28 Weight 104.6 lbs 2017-07-28 Temperature 98.1 degrees Fahrenheit 2017-07-28 Heart Rate 76 bpm 2017-07-28 Respiratory Rate 18 2017-07-28 BMI 17.40 kg/m2 2017-07-28 Blood pressure systolic 142 mmHg 2017-07-28 Blood pressure diastolic 90 mmHg 2017-07-28 MEDICATIONS Medication Instructions Dosage Frequency Start Date End Date Duration Status Abilify 15 MG Orally at bedtime 1/2 tablet Jan, 0 Active HydrOXYzine Pamoate 50 mg Orally 2 times a day 1 capsule 12h Jan, 0 Active ProAir HFA 108 (90 Base) MCG/ACT Inhalation every 6 hrs 2 puffs as needed 6h Jul, 0 days Active RESULTS No Results PROCEDURES Procedure Date Ordered Result Body Site ROUTINE VENIPUNCTURE 2017-07-28 N/A MANUAL CELL COUNT, EACH July 28, 2017 HEPATITIS C, RNA, QUANT July 28, 2017 LIPID PANEL July 28, 2017 COMPREHEN METABOLIC PANEL July 28, 2017 ACUTE HEPATITIS PANEL July 28, 2017 ASSAY THYROID STIM HORMONE July 28, 2017 INSTRUCTIONS MEDICATIONS ADMINISTERED No Known Medications MEDICAL [...]
--- OUTSIDE RECORDS SUMMARY | 2018-04-21 14:18 | XMS REPORT ---
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 Active 70671559920783859 Problem Tetrahydrocannabinol (THC) use disorder, mild, abuse F12.10 Active 61356533 Problem Chronic post-traumatic stress disorder (PTSD) F43.12 Active 993968798 Problem Bipolar disorder, unspecified F31.9 Active 22677443 Problem Suspected chronic obstructive pulmonary disease based on initial evaluation J44.9 Active 545178859 Problem Alcohol use Z78.9 Active 975259508 ALLERGIES No Information ENCOUNTERS Encounter Location Date Diagnosis [place] [id number] [place] [address] [id number] August, [place] [id number] [place] [address] [id number] Jul, [place] [id number] [place] [address] [id number] Jul, Well woman exam with routine gynecological exam Z01.419 ; Screening breast examination Z12.31 ; High risk sexual behavior Z72.51 and Colon cancer screening Z12.11 [place] [address] [place] [address] [id number] Jul, Suspected chronic obstructive pulmonary disease based on initial evaluation J44.9 [place] [id number] [place] [address] [id number] Jul, Bipolar disorder, unspecified F31.9 ; MELIDA (generalized anxiety disorder) F41.1 ; Chronic post-traumatic stress disorder (PTSD) F43.12 ; Alcohol use Z78.9 ; History of hepatitis C Z86.19 ; 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 ; Tetrahydrocannabinol (THC) use disorder, mild, abuse F12.10 ; Suspected chronic obstructive pulmonary disease based on initial evaluation J44.9 ; Tobacco abuse Z72.0 and Tobacco abuse counseling Z71.6 [place] [id number] [place] [address] 09164- 6914 Jul, [place] [address] 00423- 7431 May, [place] [address] 97127- 7238 Apr, [place] [address] 77228- 9058 Mar, [place] [address] 86715- 5225 Mar, [place] [address] 68728- 2767 Mar, Bipolar disorder, unspecified F31.9 ; Chronic post- traumatic stress disorder (PTSD) F43.12 ; MELIDA (generalized anxiety disorder) F41.1 and Alcohol use Z78.9 [place] [id number] [place] [address] 70073- 7773 Jan, Bipolar disorder, unspecified F31.9 ; MELIDA (generalized anxiety disorder) F41.1 ; Alcohol use Z78.9 and Chronic post-traumatic stress disorder (PTSD) F43.12 [place] [id number] [place] [address] 80162- 5087 Dec, UTI (urinary tract infection) 599.0 and Indigestion 536.8 [place] [id number] [place] [address] 42033- 6184 Dec, [place] [id number] [place] [address] 26447- 3126 Nov, Change in vision 368.9 ; Hep C w/o coma, chronic 070.54 ; Family history of early CAD V17.3 and Family history of diabetes mellitus V18.0 [facility] [id number] [place] [address] 65733- 3179 Nov, Encounter to establish care V65.8 ; Hepatitis C 070.70 ; Alcohol abuse 305.00 ; Drug abuse 305.90 and Anxiety 300.00 [facility] [id number] [place] [address] 98115- 4951 Nov, Depressive disorder, not elsewhere classified 311 ; Anxiety disorder, unspecified 300.00 and Alcoholism in recovery 303.90 [facility] [address] 91542- 5325 Oct, Depressive disorder, not elsewhere classified 311 ; Anxiety disorder, unspecified 300.00 and Alcoholism in recovery 303.90 [facility] [id number] [place] [address] [id number] August, [facility] [id number] [place] [address] [id number] Jul, [facility] [id number] [place] [address] 33811- 5402 Jul, [facility] [id number] [place] [address] 29964- 5095 Jul, [facility] [id number] [place] [address] [id number] Apr, [facility] [id number] [place] [address] 38838- 5185 Apr, [facility] [id number] [place] [address] [id number] Mar, [facility] [address] 24430- 1691 Mar, [facility] [id number] [place] [address] [id number] Feb, [facility] [id number] [place] [address] 25484- 1165 Feb, [facility] [address] [id number] [place] [id number] Feb, [facility] [address] [facility] [id number], [place] [address]- 2546 Feb, [facility] [address] [id number] [place] [id number] Jan, [facility] [address] [facility] [id number], [place] [address]- 2546 Jan, [facility] [address] [id number] [place] [id number] Jan, [facility] [address] [facility] [id number], [place] [address]- 1826 Jan, [facility] [address] [facility] [id number], [place] [address]- 3326 Oct, [facility] [address], [place] [address]- 7886 Jul, [facility] [address] [facility] [id number], [place] [address]- 1126 Jun, [facility] [address] [id number], [place] [address]- 6686 May, [facility] [address] [facility] [id number], [place] [address]- 3006 May, [facility] [address], [place] [address]- 2606 May, [facility] [address] [facility] [id number], [place] [address]- 2546 Apr, [facility] [address] [id number] [place] [id number] Apr, [facility] [address] [id number] [id number] Apr, [facility] [address] [id number][place] [id number] Apr, [facility] [address] [id number] [place] [id number] Apr, [facility] [address] [facility] [id number], [place] [address]- 6542 Mar, [facility] [address] [id number], [place] [address]- 8992 Mar, [facility] [address] [facility] [id number], [place] [address]- 1898 Mar, [facility] [address] [facility] [id number], [place] [address]- 1784 Feb, [facility] [address] [id number], [place] [address]- 0962 Feb, [facility] [address] [id number], [place] [address]- 3677 Feb, IMMUNIZATIONS No Known Immunizations SOCIAL HISTORY Never Assessed REASON FOR VISIT PALS PLAN OF CARE VITAL SIGNS MEDICATIONS Medication Instructions Dosage Frequency Start Date End Date Duration Status ProAir HFA 108 (90 Base) MCG/ACT Inhalation 4 times a day 2 puffs as needed 6h Jul, 0 [...]
--- OUTSIDE RECORDS SUMMARY | 2018-04-21 14:18 | XMS REPORT ---
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 Active 00854318187089606 Problem Tetrahydrocannabinol (THC) use disorder, mild, abuse F12.10 Active 69823037 Problem Chronic post-traumatic stress disorder (PTSD) F43.12 Active 988517031 Problem Bipolar disorder, unspecified F31.9 Active 89069228 Problem Suspected chronic obstructive pulmonary disease based on initial evaluation J44.9 Active 751517015 Problem Alcohol use Z78.9 Active 740016094 ALLERGIES No Information ENCOUNTERS Encounter Location Date Diagnosis [place] [id number] [place] [address] [id number] August, [place] [id number] [place] [address] [id number] Jul, [place] [id number] [place] [address] [id number] Jul, Well woman exam with routine gynecological exam Z01.419 ; Screening breast examination Z12.31 ; High risk sexual behavior Z72.51 and Colon cancer screening Z12.11 [address] [id number] [place] [address] [id number] Jul, Suspected chronic obstructive pulmonary disease based on initial evaluation J44.9 [place] [id number] [place] [address] [id number] Jul, Bipolar disorder, unspecified F31.9 ; MELIDA (generalized anxiety disorder) F41.1 ; Chronic post-traumatic stress disorder (PTSD) F43.12 ; Alcohol use Z78.9 ; History of hepatitis C Z86.19 ; 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 ; Tetrahydrocannabinol (THC) use disorder, mild, abuse F12.10 ; Suspected chronic obstructive pulmonary disease based on initial evaluation J44.9 ; Tobacco abuse Z72.0 and Tobacco abuse counseling Z71.6 [place] [id number] [place] [address] 50352- 1870 Jul, [place] [address] 00473- 9327 May, [place] [address] 76237- 1951 Apr, [place] [address] 08704- 1252 Mar, [place] [address] 19384- 5632 Mar, [place] [address] 32808- 9786 Mar, Bipolar disorder, unspecified F31.9 ; Chronic post- traumatic stress disorder (PTSD) F43.12 ; MELIDA (generalized anxiety disorder) F41.1 and Alcohol use Z78.9 [place] [address] [id number] [place] [address] 72820- 6055 Jan, Bipolar disorder, unspecified F31.9 ; MELIDA (generalized anxiety disorder) F41.1 ; Alcohol use Z78.9 and Chronic post-traumatic stress disorder (PTSD) F43.12 [place] [address] [id number] [place] [address] 51056- 0226 Dec, UTI (urinary tract infection) 599.0 and Indigestion 536.8 [place] [address] [place] [id number] [place] [address] 31431- 1948 Dec, [place] [address] [id number] [place] [address] 53852- 3385 Nov, Change in vision 368.9 ; Hep C w/o coma, chronic 070.54 ; Family history of early CAD V17.3 and Family history of diabetes mellitus V18.0 [facility] [id number] [place] [address] 50193- 6835 Nov, Encounter to establish care V65.8 ; Hepatitis C 070.70 ; Alcohol abuse 305.00 ; Drug abuse 305.90 and Anxiety 300.00 [facility] [id number] [place] [address] 60306- 2734 Nov, Depressive disorder, not elsewhere classified 311 ; Anxiety disorder, unspecified 300.00 and Alcoholism in recovery 303.90 [facility] [address] 08554- 6274 Oct, Depressive disorder, not elsewhere classified 311 ; Anxiety disorder, unspecified 300.00 and Alcoholism in recovery 303.90 [facility] [id number] [place] [address] [id number] August, [facility] [id number] [place] [address] [id number] Jul, [facility] [id number] [place] [address] 58004- 7806 Jul, [facility] [id number] [place] [address] 40544- 0866 Jul, [facility] [id number] [place] [address] [id number] Apr, [facility] [id number] [place] [address] 17781- 0330 Apr, [facility] [id number] [place] [address] [id number] Mar, [facility] [address] 95140- 4626 Mar, [facility] [id number] [place] [address] [id number] Feb, [facility] [id number] [place] [address] 99400- 6579 Feb, [facility] [address] [id number] [place] [id number] Feb, [facility] [address] [facility] [id number], [place] [address]- 2546 Feb, [facility] [address] [id number] [place] [id number] Jan, [facility] [address] [facility] [id number], [place] [address]- 2546 Jan, [facility] [address] [id number] [place] [id number] Jan, [facility] [address] [facility] [id number], [place] [address]- 7806 Jan, [facility] [address] [facility] [id number], [place] [address]- 0126 Oct, [facility] [address]65[address], [place] [address]- 6786 Jul, [facility] [address] [facility] [id number], [place] [address]- 7516 Jun, [facility] [address] [id number], [place] [address]- 6326 May, [facility] [address] [facility] [id number], [place] [address]- 4836 May, [facility] [address]65100[place], [place] [address]- 1356 May, [facility] [address] [facility] [id number], [place] [address]- 2546 Apr, [facility] [address] [id number] [place] [id number] Apr, [facility] [address] [id number][place] [id number] Apr, [facility] [address] [id number][place] [id number] Apr, [facility] [address] [id number] [place] [id number] Apr, [facility] [address] [id number] [address] Mar, [facility] [address] [id number] [address] Mar, [facility] [address] [id number], [place] [address] Mar, [facility] [address] [id number] [address] Feb, [facility] [address] [id number] [address] Feb, [facility] [address] [id number] [address] Feb, IMMUNIZATIONS No Known Immunizations SOCIAL HISTORY Never Assessed REASON FOR VISIT lab letter PLAN OF CARE VITAL SIGNS MEDICATIONS Unknown [...]
--- OUTSIDE RECORDS SUMMARY | 2018-04-21 14:18 | XMS REPORT ---
Author Author SON MI [facility] Address [address] [place] [address] Care Team Providers Care Erecting Crane Operator Name Role Phone SON MI Unavailable PROBLEMS Type Condition ICD9-CM Code [id number] Code Onset Dates Condition Status SNOMED Code Problem Acute bronchitis 466.0 Active 02367414 Problem Generalized anxiety disorder 300.02 Active 55302435 Problem Other and unspecified alcohol dependence, unspecified drunkenness 303.90 Active 976701210 Problem Cough 786.2 Active 95141595 Problem Postnasal drip 784.91 Active 72199184 Problem Insomnia, unspecified 780.52 Active 390464352 Problem Bipolar disorder, unspecified F31.9 Active 38669347 Problem MELIDA (generalized anxiety disorder) F41.1 Active 30157685 Problem Bilateral cataracts H26.9 Active 14041216 Problem Unspecified episodic mood disorder 296.90 Active 189868125 Problem Chronic post-traumatic stress disorder (PTSD) F43.12 Active 725781806 Problem Alcohol use Z78.9 Active 276261 ALLERGIES No Information SOCIAL HISTORY Never Assessed PLAN OF CARE VITAL SIGNS MEDICATIONS Unknown Medications RESULTS No Results PROCEDURES No Known procedures IMMUNIZATIONS No Known Immunizations MEDICAL (GENERAL) HISTORY Type Description Date Medical [...]
--- OUTSIDE RECORDS SUMMARY | 2018-04-21 14:18 | XMS REPORT ---
Author Author KORIN VELARDE [employer] Address Unknown Phone Unavailable Care Team Providers Care Us Marketing Director Name Role Phone KORIN VELARDE CP Unavailable Allergies, Adverse Reactions, Alerts Substance Reaction Event Type N.K.D.A. Info Not Available Non Drug Allergy Problems Problem Type Condition Code Onset Dates Condition Status Problem Unspecified episodic mood disorder 296.90 Active Problem Cough 786.2 Active Problem Insomnia, unspecified 780.52 Active Problem MELIDA (generalized anxiety disorder) F41.1 Active Problem Alcohol use Z78.9 Active Problem Bipolar disorder, unspecified F31.9 Active Problem Acute bronchitis 466.0 Active Problem Postnasal drip 784.91 Active Problem Chronic post-traumatic stress disorder (PTSD) F43.12 Active Problem Bilateral cataracts H26.9 Active Assessment MELIDA (generalized anxiety disorder) F41.1 Active Assessment Bipolar disorder, unspecified F31.9 Active Assessment Chronic post-traumatic stress disorder (PTSD) F43.12 Active Problem Other and unspecified alcohol dependence, unspecified drunkenness 303.90 Active Assessment Alcohol use Z78.9 Active Problem Generalized anxiety disorder 300.02 Active Medications Medication Code System Code Instructions Start Date End Date Status Dosage Abilify [facility] [address]-07 15 MG Orally at bedtime Feb 22, 2016 1/2 tablet HydrOXYzine Pamoate [facility] [address]-69 25 MG Orally 3 times a day Feb 22, 2016 1 capsule as needed Procedures Procedure Coding System Code Date Office Visit, Est Pt., Level 5 CPT-4 30549 Feb 22, 2016 Vital Signs Date/Time: Feb 22, 2016 Cardiac Monitoring Heart Rate 84 bpm Weight 98.3 lbs Height 65 in BMI 16.36 Index Blood Pressure Diastolic 77 mmHg Blood Pressure Systolic 131 mmHg Results No Known Results Summary Purpose eClinicalWorks Submission
--- OUTSIDE RECORDS SUMMARY | 2018-04-21 14:18 | XMS REPORT ---
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 Active 83927911347415103 Problem Tetrahydrocannabinol (THC) use disorder, mild, abuse F12.10 Active 28446302 Problem Chronic post-traumatic stress disorder (PTSD) F43.12 Active 930961600 Problem Bipolar disorder, unspecified F31.9 Active 72153206 Problem Suspected chronic obstructive pulmonary disease based on initial evaluation J44.9 Active 367335895 Problem Alcohol use Z78.9 Active 022818083 ALLERGIES No Known Allergies ENCOUNTERS Encounter Location Date Diagnosis [address] [place] [id number] [place] [id number] August, [address] [place] [id number] [place] [address] [phone] Jul, [address] [id number] [place] [address] [phone] Jul, Well woman exam with routine gynecological exam Z01.419 ; Screening breast examination Z12.31 ; High risk sexual behavior Z72.51 and Colon cancer screening Z12.11 [id number] [place] [address] [phone] Jul, Suspected chronic obstructive pulmonary disease based on initial evaluation J44.9 [id number] [place] [address] [phone] Jul, Bipolar disorder, unspecified F31.9 ; MELIDA (generalized anxiety disorder) F41.1 ; Chronic post-traumatic stress disorder (PTSD) F43.12 ; Alcohol use Z78.9 ; History of hepatitis C Z86.19 ; 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 ; Tetrahydrocannabinol (THC) use disorder, mild, abuse F12.10 ; Suspected chronic obstructive pulmonary disease based on initial evaluation J44.9 ; Tobacco abuse Z72.0 and Tobacco abuse counseling Z71.6 [address] [id number] [place] [address] 24511- 9993 Jul, [place] [id number] [place] [address] 23171- 9032 May, [place] [id number] [place] [address] 11814- 6072 Apr, [place] [id number] [place] [address] 20468- 6788 Mar, [address] [id number] [place] [address] 66351- 1362 Mar, [address] [id number] [place] [address] 24638- 5341 Mar, Bipolar disorder, unspecified F31.9 ; Chronic post- traumatic stress disorder (PTSD) F43.12 ; MELIDA (generalized anxiety disorder) F41.1 and Alcohol use Z78.9 [place] [id number] [place] [address] 38353- 0866 Jan, Bipolar disorder, unspecified F31.9 ; MELIDA (generalized anxiety disorder) F41.1 ; Alcohol use Z78.9 and Chronic post-traumatic stress disorder (PTSD) F43.12 [place] [id number] [place] [address] 24771- 6867 Dec, UTI (urinary tract infection) 599.0 and Indigestion 536.8 [place] [id number] [place] [address] 49244- 5974 Dec, [place] [id number] [place] [address] 34989- 0311 Nov, Change in vision 368.9 ; Hep C w/o coma, chronic 070.54 ; Family history of early CAD V17.3 and Family history of diabetes mellitus V18.0 [facility] [id number] [place] [address] 00182- 9911 Nov, Encounter to establish care V65.8 ; Hepatitis C 070.70 ; Alcohol abuse 305.00 ; Drug abuse 305.90 and Anxiety 300.00 [facility] [id number] [place] [address] 92386- 0876 Nov, Depressive disorder, not elsewhere classified 311 ; Anxiety disorder, unspecified 300.00 and Alcoholism in recovery 303.90 [facility] [id number] [place] [address] 554708- 9291 Oct, Depressive disorder, not elsewhere classified 311 ; Anxiety disorder, unspecified 300.00 and Alcoholism in recovery 303.90 [facility] [id number] [place] [address] [phone] August, [facility] [id number] [place] [address] [phone] Jul, [facility] [id number] [place] [address] 90864- 2129 Jul, [facility] [id number] [place] [address] [phone]- 4700 Jul, [facility] [address] [place] [address] [phone] Apr, [facility] [id number] [place] [address] 05206- 6901 Apr, [facility] [id number] [place] [address] [phone] Mar, [facility] [address] [address]- 0503 Mar, [facility] [id number] [place] [address] [phone] Feb, [facility] [id number] [place] [address] 61705- 4296 Feb, [facility] [address] [id number] [place] [phone] Feb, [facility] [address] [facility] [id number], [place] [address] Feb, [facility] [address] [id number] [place] [phone] Jan, [facility] [address] [facility] [id number], [place] [address] Jan, [facility] [address] [id number] [place] [phone] Jan, [facility] [address] [facility] [id number], [place] [address] Jan, [facility] [address] [facility] [id number], [place] [address]27 Oct, [facility] [address], [place] [address] Jul, [facility] [address] [facility] [id number], [place] [address] 280[address] Jun, [facility] [address] [id number] [address] May, [facility] [address] [facility] [id number], [place] [address] May, [facility] [address], [place] [address] May, [facility] [address] [facility] [id number], [place] [address] Apr, [facility] [address] [id number] [place] [phone] Apr, [facility] [address] [id number] [place] [phone] Apr, [facility] [address] [id number] [place] [phone] Apr, [facility] [address] [id number] [place] [phone] Apr, [facility] [address] [facility] [id number], [place] [address] Mar, [facility] [address] [facility] [id number], [place] [address] 3186 Mar, [facility] [address] [facility] [id number], [place] [address] 5[address] Mar, [facility] [address] [id number], [place] [address]26 Feb, [facility] [address] [id number], [place] [address] 1703 Feb, [facility] [address] [id number], [place] [address] Feb, IMMUNIZATIONS No Known Immunizations SOCIAL HISTORY Never Assessed REASON FOR VISIT Well Women Exam PLAN OF CARE Activity Details Follow Up 4 Weeks Reason:Hep C (will need to have UDS and genotype done then) VITAL SIGNS Height 65 in 2017-08-06 Weight 104 lbs 2017-08-06 Temperature 97.8 degrees Fahrenheit 2017-08-06 Heart Rate 92 bpm 2017-08-06 Respiratory Rate 20 2017-08-06 BMI 17.30 kg/m2 2017-08-06 Blood pressure systolic 130 mmHg 2017-08-06 Blood pressure diastolic 78 mmHg 2017-08-06 MEDICATIONS Medication Instructions Dosage Frequency Start Date End Date Duration Status ProAir HFA 108 (90 Base) MCG/ACT Inhalation 4 times a day 2 puffs as needed 6h Jul, 0 days Not-Taking Abilify 15 MG Orally at bedtime 1/2 tablet Jan, 0 Not- Taking HydrOXYzine Pamoate 50 mg Orally 2 times a day 1 capsule 12h Jan, 0 Active RESULTS No Results PROCEDURES Procedure Date Ordered Result Body Site SPECIMEN HANDLING August 06, 2017 Bacterial Vaginosis In House August 06, 2017 No Charge August 06, 2017 TRICHOMONAS ASSAY W/OPTIC August 06, 2017 TEST FOR BLOOD, FECES August 06, 2017 CULTURE, BACTERIA, OTHER August 06, 2017 INSTRUCTIONS MEDICATIONS ADMINISTERED No Known Medications [...]
--- OUTSIDE RECORDS SUMMARY | 2018-04-21 14:18 | XMS REPORT ---
Author Author SON MI [facility] Address [address] [place] [address] Care Team Providers Care Hob Grinder Name Role Phone SON MI Unavailable PROBLEMS Type Condition ICD9-CM Code BSO20-UE Code Onset Dates Condition Status SNOMED Code Problem Acute bronchitis 466.0 Active 49262281 Problem Generalized anxiety disorder 300.02 Active 30012608 Problem Other and unspecified alcohol dependence, unspecified drunkenness 303.90 Active 743334116 Problem Cough 786.2 Active 49846647 Problem Postnasal drip 784.91 Active 38474602 Problem Insomnia, unspecified 780.52 Active 176008975 Problem Bipolar disorder, unspecified F31.9 Active 77483797 Problem MELIDA (generalized anxiety disorder) F41.1 Active 21091411 Problem Bilateral cataracts H26.9 Active 03350722 Problem Unspecified episodic mood disorder 296.90 Active 637825911 Problem Chronic post-traumatic stress disorder (PTSD) F43.12 Active 822172448 Problem Alcohol use Z78.9 Active 149431 ALLERGIES Unknown Allergies SOCIAL HISTORY No smoking Hx information available PLAN OF CARE VITAL SIGNS MEDICATIONS Unknown Medications RESULTS No Results PROCEDURES No Known procedures IMMUNIZATIONS No Known Immunizations
--- OUTSIDE RECORDS SUMMARY | 2018-04-21 14:19 | XMS REPORT | Continuity of Care Document ---
Author Author [facility] Address Unknown Phone Unavailable Allergies Active Description Code Type Severity Reaction Onset Reported/Identified Relationship to Patient Clinical Status Yes oxytetracycline [id number] Drug Allergy Unknown N/A 02/13/2011 Medications There is no data. Problems Date Dx Coded Attending Type Code Diagnosis Diagnosed By 02/15/2011 Ot 263.1 02/15/2011 Ot 287.49 02/15/2011 Ot 296.80 02/15/2011 Ot 300.00 02/15/2011 Ot 303.00 02/15/2011 Ot 305.1 02/15/2011 Ot 305.20 02/15/2011 Ot 305.60 02/15/2011 Ot 790.6 02/15/2011 Ot V10.41 04/15/2011 KATLIN MORFIN APRN E 300.00 ANXIETY UNSPEC 04/15/2011 SEBASTIAN MORFIN APRNSIE E 521.00 UNSPECIFIED DENTAL CARIES 04/15/2011 NOAH MORFIN APRNE E V10.90 PERSONAL HISTORY OF UNSPECIFIED MALIGNANT NEOPLASM 04/15/2011 SEBASTIAN MORFIN APRNSIE E V11.3 PERSONAL HISTORY OF ALCOHOLISM 04/15/2011 MILAD CAMPUZANO MERE K 300.00 ANXIETY UNSPEC 04/15/2011 MILAD CAMPUZANO MERE K 521.00 UNSPECIFIED DENTAL CARIES 04/15/2011 STINSON DO MERE K V10.90 PERSONAL HISTORY OF UNSPECIFIED MALIGNANT NEOPLASM 04/15/2011 STINSON DO MERE K V11.3 PERSONAL HISTORY OF ALCOHOLISM 04/15/2011 SEBASTIAN MORFIN APRNSIE E 300.00 ANXIETY UNSPEC 04/15/2011 SEBASTIAN MORFIN APRNSIE E 521.00 UNSPECIFIED DENTAL CARIES 04/15/2011 SEBASTIAN MORFIN APRNSIE E V10.90 PERSONAL HISTORY OF UNSPECIFIED MALIGNANT NEOPLASM 04/15/2011 SEBASTIAN MORFIN APRNSIE E V11.3 PERSONAL HISTORY OF ALCOHOLISM 04/15/2011 LEONA LAYNE PSYD L 300.00 ANXIETY UNSPEC 04/15/2011 LEONA LAYNE PSYD L 521.00 UNSPECIFIED DENTAL CARIES 04/15/2011 LEONA LAYNE PSYD L V10.90 PERSONAL HISTORY OF UNSPECIFIED MALIGNANT NEOPLASM 04/15/2011 LEONA LAYNE PSYD L V11.3 PERSONAL HISTORY OF ALCOHOLISM 05/10/2011 SEBASTIAN MORFIN APRNSIE E 466.0 ACUTE BRONCHITIS 05/10/2011 NAVJOT CESPEDES KATLIN E 784.91 POSTNASAL DRIP 05/10/2011 NAVJOT CESPEDES KATLIN E 786.2 COUGH 05/10/2011 STINSON , MERE K 466.0 ACUTE BRONCHITIS 05/10/2011 STINSON , MERE K 784.91 POSTNASAL DRIP 05/10/2011 STINSON , MREE K 786.2 COUGH 05/10/2011 NAVJOT CESPEDES KATLIN E 466.0 ACUTE BRONCHITIS 05/10/2011 SEBASTIAN MORFIN APRNSIE E 784.91 POSTNASAL DRIP 05/10/2011 NAVJOT CESPEDES KATLIN E 786.2 COUGH 05/10/2011 LEONA LAYNE PSYD L 466.0 ACUTE BRONCHITIS 05/10/2011 LEONA LAYNE PSYD 784.91 POSTNASAL DRIP 05/10/2011 LEONA LAYNE PSYD L 786.2 COUGH 05/17/2011 SEBASTIAN MORFIN APRNSIE E 300.02 AN GEN ANXIETY 05/17/2011 SEBASTIAN MORFIN APRNSIE E 303.90 ALCOHOLISM 05/17/2011 STINSON DO, MERE K 300.02 AN GEN ANXIETY 05/17/2011 STINSON DO, MERE K 303.90 ALCOHOLISM 05/17/2011 SEBASTIAN MORFIN APRNSIE E 300.02 AN GEN ANXIETY 05/17/2011 SEBASTIAN MORFIN APRNSIE E 303.90 ALCOHOLISM 05/17/2011 LEONA LAYNE PSYD 300.02 AN GEN ANXIETY 05/17/2011 LEONA LAYNE PSYD 303.90 ALCOHOLISM 07/04/2011 SEBASTIAN MORFIN APRNSIE E 309.81 AN PTSD 07/04/2011 MILAD CAMPUZANO MERE K 309.81 AN PTSD 07/04/2011 HELRISHABH CESPEDES KATLIN E 309.81 AN PTSD 07/04/2011 LEONA LAYNE PSYD L 309.81 AN PTSD 02/07/2014 HELRISHABH GOMEZN, KATLIN E 296.90 UNSPECIFIED EPISODIC MOOD DISORDER 02/07/2014 HELLMARVIN GOMEZN, KATLIN E 780.52 INSOMNIA UNSPECIFIED 02/07/2014 MILAD CAMPUZANO MERE K 296.90 UNSPECIFIED EPISODIC MOOD DISORDER 02/07/2014 STINSON , MERE K 780.52 INSOMNIA UNSPECIFIED 02/07/2014 HELLMARVIN GOMEZN, KATLIN E 296.90 UNSPECIFIED EPISODIC MOOD DISORDER 02/07/2014 SEBASTIAN MORFIN APRNSIE E 780.52 INSOMNIA UNSPECIFIED 02/07/2014 LEONA LAYNE PSYD 296.90 UNSPECIFIED EPISODIC MOOD DISORDER 02/07/2014 LEONA LAYNE PSYD 780.52 INSOMNIA UNSPECIFIED 08/16/2014 LEONA LAYNE PSYD L 296.89 MO BIPOLAR II 08/16/2014 LEONA LAYNE PSYD 300.01 AN PANIC DIS W/O AGORA 10/03/2014 Ot V76.12 10/04/2014 NAMAN ZHANG, ESTRELLA Liu Ot 558.9 NONINF GASTROENTERIT NEC 10/04/2014 ESTRELLA FLORENCE MD Ot 787.60 FULL INCONTINENCE OF FECES 10/04/2014 Ot V76.12 01/02/2015 Ot V76.12 01/03/2015 Ot V76.12 01/05/2015 GLADYS TREJO MD Ot 038.9 01/05/2015 GLADYS TREJO MD Ot 070.70 01/05/2015 GLADYS TREJO MD N Ot 276.51 01/05/2015 GLADYS TREJO MD N Ot 296.80 01/05/2015 GLADYS TREJO MD N Ot 303.91 01/05/2015 GLADYS TREJO MD N Ot 305.1 01/05/2015 GLADYS TREJO MD N Ot 599.0 01/05/2015 GLADYS TREJO MD N Ot 995.91 01/05/2015 NEIL ZHANG, GLADYS N Ot 038.9 01/05/2015 NEIL ZHANG, GLADYS N Ot 041.49 01/05/2015 NEIL ZHANG, GLADYS N Ot 070.70 01/05/2015 NEIL ZHANG, GLADYS N Ot 276.51 01/05/2015 NEIL ZHANG, GLADYS N Ot 287.5 01/05/2015 NEIL ZHANG, GLADYS N Ot 296.80 01/05/2015 NEIL ZHANG, GLADYS N Ot 303.91 01/05/2015 NEIL ZHANG, GLADYS N Ot 305.1 01/05/2015 NEIL ZHANG, GLADYS N Ot 599.0 01/05/2015 NEIL ZHANG, GLADYS N Ot 995.91 01/05/2015 NEIL ZHANG, GLADYS N Ot A41.9 01/05/2015 NEIL ZHANG, GLADYS N Ot B19.20 01/05/2015 LOIDA TREJO MDY N Ot D69.6 01/05/2015 NEIL ZHANG GLADYS N Ot E86.0 01/05/2015 NEIL ZHANG, GLADYS N Ot F10.20 01/05/2015 NEIL ZHANG, GLADYS N Ot F17.200 01/05/2015 LOIDA TREJO MDY N Ot F31.9 01/05/2015 NEIL ZHANG, GLADYS N Ot N39.0 01/05/2015 NEIL ZHANG, GLADYS N Ot V03.82 01/05/2015 LOIDA TREJO MDY N Ot V04.81 01/05/2015 NEIL ZHANG, GLADYS N Ot Z23 02/06/2017 KARON ZHANG, ALLISON Bhagat ([facility]) Ot J44.9 CHRONIC OBSTRUCTIVE PULMONARY DISEASE, U Procedures Code Description [place] [address] ROUTINE VENIPUNCTURE 02/07/2014 34795 CMP 02/07/2014 98736 VALPROIC ACID / DEPAKOTE 02/07/2014 38658 TSH 02/07/2014 93053 ROUTINE VENIPUNCTURE 04/11/2014 04479 VALPROIC ACID / DEPAKOTE 04/11/2014 73996 PSYCH DIAGNOSTIC EVALUATION 08/16/2014 Results Test Result Range DIFFERENTIAL, MANUAL - 07/28/17 15:06 ABSOLUTE NEUTROPHILS 2280 cells/uL 8101-6297 ABSOLUTE MONOCYTES 912 cells/uL 200-950 ABSOLUTE EOSINOPHILS 114 cells/uL 15-500 ABSOLUTE BASOPHILS 0 cells/uL 0-200 NEUTROPHILS 20 % NRG LYMPHOCYTES 69 % NRG MONOCYTES 8 % NRG EOSINOPHILS 1 % NRG BASOPHILS 0 % NRG ABSOLUTE BAND NEUTROPHILS 114 cells/uL 0-750 ABSOLUTE METAMYELOCYTES 114 cells/uL ABSOLUTE LYMPHOCYTES 7866 cells/uL 850-3900 BAND NEUTROPHILS 1 % NRG METAMYELOCYTES 1 % NRG COMMENT(S) NRG Encounters ACCT No. Visit Date/Time Discharge Status Pt. Type Provider Facility Loc./Unit Complaint [id number] 08/16/2014 10:45:00 08/16/2014 23:59:59 CLS Outpatient LEONA LAYNE PSYD [id number] 04/11/2014 11:07:00 04/11/2014 23:59:59 CLS Outpatient KATLIN OMRFIN APRN [id number] 03/16/2014 13:43:00 03/16/2014 23:59:59 CLS Outpatient MERE STINSON DO [id number] 02/07/2014 11:13:00 02/07/2014 23:59:59 CLS Outpatient KATLIN MORFIN APRN [id number] 08/15/2017 14:25:00 08/15/2017 23:59:59 CLS Preadmit MAYTE NUNES [facility] RAD SCREENING [id number] 01/31/2017 10:18:00 01/31/2017 23:59:59 CLS Outpatient ALLISON BRANTLEY MD (DDU) [facility] RAD DDU [id number] 01/02/2015 19:55:00 01/05/2015 13:40:00 DIS Inpatient GLADYS TREJO MD [facility] SURGICAL [id number] 10/03/2014 21:09:00 10/04/2014 03:38:00 DIS Emergency ESTRELLA FLORENCE MD [facility] ER ABNORMAL FLUIDS FROM RECTUM [id number] 10/03/2014 21:10:00 Document Registration [id number] 02/11/2011 15:01:00 Document Registration [id number] 12/04/2017 11:20:00 12/04/2017 23:59:59 [facility] Outpatient MAYTE MORELAND [facility] [id number] 07/28/2017 14:20:00 Document Registration
--- OUTSIDE RECORDS SUMMARY | 2018-04-21 14:19 | XMS REPORT ---
Author Author SON MI Organization [employer] Address Unknown Phone Unavailable Care Team Providers Care Inside Sales Lead Name Role Phone SON MI CP Unavailable Allergies No Known Allergies Problems Problem Type Condition ICD-9 Code Onset Dates Condition Status Problem Other and unspecified alcohol dependence, unspecified drunkenness 303.90 Active Problem Acute bronchitis 466.0 Active Problem Postnasal drip 784.91 Active Problem Posttraumatic stress disorder 309.81 Active Problem Unspecified episodic mood disorder 296.90 Active Problem Generalized anxiety disorder 300.02 Active Problem Cough 786.2 Active Problem Insomnia, unspecified 780.52 Active Medications No Known Medications Results No Known Results Summary Purpose [employer] Submission
--- OUTSIDE RECORDS SUMMARY | 2018-04-21 14:19 | XMS REPORT ---
Author Author KORIN VELARDE Organization [facility] Address [address] [place] [address] Care Team Providers Care Log Handling Equipment Operator Name Role Phone KORIN VELARDE Unavailable PROBLEMS Type Condition ICD9-CM Code ENA46-KK Code Onset Dates Condition Status SNOMED Code Problem Insomnia, unspecified 780.52 Active 497476979 Problem Postnasal drip 784.91 Active 07828105 Problem Cough 786.2 Active 33538654 Assessment Bipolar disorder, unspecified F31.9 Mar, Active 41619484 Problem Other and unspecified alcohol dependence, unspecified drunkenness 303.90 Active 108200471 Problem Generalized anxiety disorder 300.02 Active 27615647 Problem Unspecified episodic mood disorder 296.90 Active 932102192 Problem Bipolar disorder, unspecified F31.9 Active 86151295 Problem MELIDA (generalized anxiety disorder) F41.1 Active 66440660 Problem Bilateral cataracts H26.9 Active 22396638 Problem Acute bronchitis 466.0 Active 61112047 Problem Alcohol use Z78.9 Active 448530 Problem Chronic post-traumatic stress disorder (PTSD) F43.12 Active 485716709 ALLERGIES Unknown Allergies SOCIAL HISTORY No smoking Hx information available PLAN OF CARE VITAL SIGNS Height 65 in 2016-03-28 Weight 99.6 lbs 2016-03-28 Heart Rate 88 bpm 2016-03-28 Respiratory Rate 20 2016-03-28 BMI 16.57 kg/m2 2016-03-28 Blood pressure systolic 136 mmHg 2016-03-28 Blood pressure diastolic 84 mmHg 2016-03-28 MEDICATIONS Medication Instructions Dosage Frequency Start Date End Date Duration Status Abilify 15 MG Orally at bedtime 1/2 tablet Jan, Active HydrOXYzine Pamoate 50 mg Orally 3 times a day 1 capsule 8h Jan, Active RESULTS No Results PROCEDURES Procedure Date Ordered Related Diagnosis Body Site MH Office Visit, Est Pt., Level 4 Mar 28, 2016 IMMUNIZATIONS No Known Immunizations
--- OUTSIDE RECORDS SUMMARY | 2018-04-21 14:19 | XMS REPORT ---
Author Author SON MI Organization [employer] Address Unknown Phone Unavailable Care Team Providers Care Investigative Reporter Name Role Phone SON MI CP Unavailable Allergies, Adverse Reactions, Alerts Substance Reaction Event Type N.K.D.A. Info Not Available Non Drug Allergy Problems Problem Type Condition ICD-9 Code Onset Dates Condition Status Assessment Hep C w/o coma, chronic 070.54 Active Problem Other and unspecified alcohol dependence, unspecified drunkenness 303.90 Active Assessment Change in vision 368.9 Active Assessment Family history of diabetes mellitus V18.0 Active Assessment Family history of early CAD V17.3 Active Problem Acute bronchitis 466.0 Active Problem Postnasal drip 784.91 Active Problem Posttraumatic stress disorder 309.81 Active Problem Unspecified episodic mood disorder 296.90 Active Problem Generalized anxiety disorder 300.02 Active Problem Cough 786.2 Active Problem Insomnia, unspecified 780.52 Active Medications Medication Code System Code Instructions Start Date End Date Status Dosage Sertraline HCl [facility] [address]-91 50 MG Orally Once a day for 4 days and then 1 tab daily Dec 06, 2014 1/2 tab Procedures Procedure Coding System Code Date LIPID PANEL CPT-4 19241 Dec 19, 2014 GLYCATED HEMOGLOBIN TEST CPT-4 72468 Dec 19, 2014 COMPREHEN METABOLIC PANEL CPT-4 84361 Dec 19, 2014 VENIPUNCT, ROUTINE* CPT-4 61900 Dec 19, 2014 COMPLETE CBC W/AUTO DIFF WBC CPT-4 20068 Dec 19, 2014 Office Visit, Est Pt., Level 3 CPT-4 56261 Dec 19, 2014 Vital Signs Date/Time: Dec 19, 2014 Temperature 97.0 F Weight 95.3 lbs Height 65 in BMI 15.86 Index Blood Pressure Diastolic 80 mmHg Blood Pressure Systolic 122 mmHg Cardiac Monitoring Heart Rate 70 bpm Results Name Result Date Reference Range Unit Abnormality Flag ROUTINE VENIPUNCTURE Summary Purpose [employer] Submission
[2018-04-21] MEDS ORDERED: AMOXICILLIN 500 MG (POLYMOX) CAP PO STA (14:50)
[2018-04-21] MEDS ORDERED: RX-NAPROXEN (NAPROSYN) 250 MG TAB PPK#4 PO STA (14:50)
[2018-04-21] MEDS ORDERED: AMOX500C2 PO (14:54)
[2018-04-21] MEDS ORDERED: SULF1TAB35 PO (14:54)
--- NOTE | 2018-04-21 14:55 | ED Integumentary General ---
General Chief Complaint: Skin/Wound Problems Stated Complaint: SORES ALL OVER BODY Source: patient, family Exam Limitations: no limitations History of Present Illness Date Seen by Provider: Apr 21, 2018 Time Seen by Provider: 14:51 Initial Comments To ER accompanied by her son and [id number] with reports of sores all over her body for 2 months. She finally decided to have these evaluated today. She also has a sore throat. She does report alcohol use daily, smokes marijuana, smokes methamphetamine Timing/Duration: constant Severity: moderate Location: extremities Possible Cause: no cause identified Associated Symptoms: sore throat Allergies and Home Medications Allergies Coded Allergies: oxytetracycline (Unverified Allergy, Unknown, 02/13/11) Home Medications Ciprofloxacin HCl 500 Mg Tablet, 500 MG PO Q12H Prescribed by: GLADYS TREJO on 01/05/15 1213 Sertraline HCl 50 Mg Tablet, 50 MG PO DAILY, (Reported) Patient Home Medication List Home Medication List Reviewed: Yes Review of Systems Review of Systems Constitutional: see HPI EENTM: see HPI Respiratory: no symptoms reported Cardiovascular: no symptoms reported Genitourinary: no symptoms reported Musculoskeletal: no symptoms reported Skin: no symptoms reported Psychiatric/Neurological: No Symptoms Reported Endocrine: No Symptoms Reported Past Uhvpggn-Vednzx-Zelnbg Hx Immunizations Up To Date Tetanus Booster (TDap): Unknown Date of Pneumonia Vaccine: Jan 05, 2015 Date of Influenza Vaccine: Jan 05, 2015 Past Medical History Hysterectomy, Orthopedic Reproductive 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 Liver Disease/Jaundice, Hepatitis Uterine Anxiety, Bipolar, Depression Family Medical History Diabetes mellitus G8 BROTHER FH: lung cancer G8 SISTER FH: stroke 19 MOTHER No Pertinent Family Hx Physical Exam Vital Signs Capillary Refill : General Appearance: WD/WN, no apparent distress, other (hyperactive, unable to sit still, appears to be acutely under the influence of methamphetamine.) HEENT: PERRL/EOMI, normal ENT inspection, TMs normal, pharyngeal erythema Neck: non-tender, full range of motion Respiratory: no respiratory distress, no accessory muscle use Gastrointestinal: non tender, soft Neurologic/Psychiatric: alert, normal mood/affect, oriented x 3 Skin: normal color, warm/dry, other (she does have 3-4 ulcerated sores on either upper extremity. There is one on the left thumb that is a bit larger than the others, there is one on the right thumb that has about 6 inches of lymphangitis associated at the dorsal radial aspect of the arm. No cellulitis.) Departure Impression Primary Impression: Soft tissue infection Disposition: 01 HOME, SELF-CARE Condition: Stable Departure-Patient Inst. Decision time for Depature: 14:53 Referrals: NO,LOCAL PHYSICIAN (PCP/Family) Primary Care Physician Patient Instructions: Wound Care (DC) Add. Discharge Instructions: 1. Return to ER for any concerns 2. Apply the antibiotic cream to the sores twice daily. Take antibiotics as directed. All discharge instructions reviewed with patient and/or family. Voiced understanding. Scripts Amoxicillin (Amoxicillin) 500 Mg Capsule 500 MG PO TID, #21 CAP Prov: SABA VELASCO APRN 04/21/18 Sulfamethoxazole/Trimethoprim (Bactrim Ds Tablet) 1 Each Tablet 1 EACH PO BID, #14 TAB Prov: SABA VELASCO APRN 04/21/18 SABA VELASCO APRN Apr 21, 2018 14:54
[2018-04-21] MEDS ORDERED: MUPIROCIN 2% OINT 22 GM (BACTROBAN) TUBE ONE (14:59)
[2018-04-21] MEDS ORDERED: TRIM/SULFAMETH 160/800 (SEPTRA DS) TAB PO ONE (15:00)
[2018-04-21 15:30] VITALS: BP 127/92
[2018-04-21] MEDS ORDERED: MUPIROCIN 2% OINT 22 GM (BACTROBAN) TUBE TOP SCH (21:00)
== END 2018-04-21 15:30 | disposition home or self-care (01) ==
LOC: EDUNIT# 14:10 → ER 14:12
DX: L08.9 Local infection of the skin and subcutaneous tissue, unspecified (principal); F41.9 Anxiety disorder, unspecified; F31.9 Bipolar disorder, unspecified; Z80.1 Family history of malignant neoplasm of trachea, bronchus and lung; Z88.1 Allergy status to other antibiotic agents; Z90.710 Acquired absence of both cervix and uterus; Z87.19 Personal history of other diseases of the digestive system
CPT/HCPCS: 87070; 87077; 87205; 99283

== ENCOUNTER → 2018-05-19 | Outpatient (CLI) | payer MEDICAID ==
[~2018-05-19] MED LIST changes: +AMOX500C2 PO; +IOHEXOL 350 MG/ML 100 ML (OMNIPAQUE 350) VIAL IV ONE; +NS 100 ML (IVPB) BAG IV ONE; +RECEIVED CONTRAST (Hold Metformin) IV SCH; +SULF1TAB35 PO
[2018-05-19 10:11] LABS: BUN/CREATININE RATIO 27; CREATININE SERUM 0.75 MG/DL (0.60-1.30); GFR ESTIMATED > 60
--- NOTE | 2018-05-19 11:46 | Diagnostic Imaging Report ---
CLINICAL INDICATION: Patient with dizziness and shooting pain in head. EXAM: Axial CT scan of brain performed without and with 80 cc of Omnipaque 350 IV contrast. COMPARISON: None. FINDINGS: There is no evidence of acute cerebral infarct, intracranial hemorrhage, or gross mass effect. There is no abnormal IV contrast enhancement. There is mild diffuse brain parenchymal volume loss. There is focal and patchy areas of low-attenuation white matter changes involving both cerebral hemispheres which may represent mild chronic small vessel ischemic disease. There is normal witt-white matter distinction. There is no significant midline shift or herniation. The [place] vascular structures show no gross abnormality as visualized. There is no evidence of hydrocephalus. The basal cisterns are unremarkable. The skull, extracranial soft tissue, and orbits are unremarkable. There is wztf-tx-htcxlbtu mucosal thickening involving right maxillary sinus. There is mild mucosal thickening involving ethmoid sinus and left maxillary sinus. Temporal bones show no significant abnormality. IMPRESSION: 1: There is no evidence of acute intracranial process. There is no abnormal IV contrast enhancement. 2: There is brain parenchymal volume loss and chronic small vessel ischemic disease. 3: Yvjv-rz-grtljain paranasal sinus disease. Dictated by: Dictated on workstation # [id number]
== END ==
LOC: RAD 09:40
PROVIDERS: ATTEND Registered Nurse
DX: I67.82 Cerebral ischemia (principal); J32.9 Chronic sinusitis, unspecified
CPT/HCPCS: 36415; 70470; 82565; 84520

== ENCOUNTER 2019-02-09 20:39 | Emergency (ER) | payer MEDICAID ==
[~2019-02-09] VITALS: Ht 165 cm; Wt 45.5 kg
[~2019-02-09 20:39] MED LIST changes: -IOHEXOL 350 MG/ML 100 ML (OMNIPAQUE 350) VIAL IV ONE; -NS 100 ML (IVPB) BAG IV ONE; -RECEIVED CONTRAST (Hold Metformin) IV SCH
[2019-02-09 20:44] VITALS: BP 169/93
[2019-02-10] MEDS ORDERED: CEFU250T80 PO (16:35)
[2019-02-10] MEDS ORDERED: PRD20T PO (16:35)
== END 2019-02-09 21:03 | disposition left against medical advice (07) ==
LOC: EDUNIT# 20:39 → ER 20:41
DX: J02.9 Acute pharyngitis, unspecified (principal); R05 Cough

== ENCOUNTER → 2019-02-10 | Emergency (ER) | payer MEDICAID ==
[~2019-02-10] VITALS: Ht 165 cm; Wt 44.0 kg
[~2019-02-10] MED LIST changes: +CEFU250T80 PO; +PRD20T PO
[2019-02-10 15:50] VITALS: BP 125/73
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
[2019-02-10 16:23] LABS: BASOPHILS % (AUTO) 1 % (0-10); EOSINOPHILS # (AUTO) 0.1 10^3/uL (0.0-0.3); EOSINOPHILS % (AUTO) 3 % (0-10); HEMATOCRIT 41 % (35-52); HEMOGLOBIN 13.8 G/DL (11.5-16.0); LYMPHOCYTES # (AUTO) 3.2 X 10^3 (1.0-4.0); LYMPHOCYTES % (AUTO) 58 % (12-44); MEAN CORPUSCULAR HEMOGLOBIN 33 PG (25-34); MEAN CORPUSCULAR HGB CONC 34 G/DL (32-36); MEAN CORPUSCULAR VOLUME 98 FL (80-99); MEAN PLATELET VOLUME 10.9 FL (7.4-10.4); MONOCYTES # (AUTO) 0.6 X 10^3 (0.0-1.0); MONOCYTES % (AUTO) 11 % (0-12); NEUTROPHILS # (AUTO) 1.5 X 10^3 (1.8-7.8); NEUTROPHILS % (AUTO) 28 % (42-75); PLATELET COUNT 106 10^3/uL (130-400); RED CELL DISTRIBUTION WIDTH 13.8 % (10.0-14.5); WHITE BLOOD COUNT 5.5 10^3/uL (4.3-11.0)
--- NOTE | 2019-02-10 16:28 | Diagnostic Imaging Report ---
INDICATION: Cough, weakness. COMPARISON: 01/31/2017. FINDINGS: Frontal and lateral views of the chest demonstrate hyperinflation compatible with COPD. Lungs are otherwise clear. The heart is normal. There is no pneumothorax. Osseous structures are normal. IMPRESSION: COPD without infiltrate. Dictated by: Dictated on workstation # [id number]
[2019-02-10 16:45] LABS: BUN/CREATININE RATIO 15; CALCIUM 9.5 MG/DL (8.5-10.1); CARBON DIOXIDE 25 MMOL/L (21-32); CHLORIDE 106 MMOL/L (98-107); CREATININE SERUM 0.82 MG/DL (0.60-1.30); GFR ESTIMATED > 60; GLUCOSE 95 MG/DL (70-105); SODIUM 141 MMOL/L (135-145)
== END | disposition left against medical advice (07) ==
LOC: EDUNIT# 15:46 → ER 15:47
DX: J40 Bronchitis, not specified as acute or chronic (principal); B19.20 Unspecified viral hepatitis C without hepatic coma; J44.9 Chronic obstructive pulmonary disease, unspecified; F31.9 Bipolar disorder, unspecified; F41.9 Anxiety disorder, unspecified; F17.210 Nicotine dependence, cigarettes, uncomplicated; Z88.1 Allergy status to other antibiotic agents; Z90.710 Acquired absence of both cervix and uterus; Z85.42 Personal history of malignant neoplasm of other parts of uterus; Z80.1 Family history of malignant neoplasm of trachea, bronchus and lung
CPT/HCPCS: 36415; 71046; 80048; 85025; 99281

== ENCOUNTER 2019-06-27 14:53 | Emergency (ER) | payer MEDICAID ==
[~2019-06-27] VITALS: Ht 165.1 cm; Wt 47.6 kg
[2019-06-27 15:12] VITALS: BP 161/84
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
--- NOTE | 2019-06-27 16:03 | Diagnostic Imaging Report ---
INDICATION: Pain, swelling, redness extending up into the forearm as well. Patient cannot remove thumb ring. EXAMINATION: Right hand, 06/27/2019. FINDINGS: Three views of the hand. A ring overlies the proximal 1st phalanx obscuring its evaluation. Visualized hand demonstrates no evidence for a fracture or dislocation. Chronic change seen distal to the tip of the radius. Small densities posterior to the wrist are age indeterminate. Correlate for any point tenderness that may suggest a tiny avulsion fracture. There is diffuse soft tissue swelling about the wrist and distal forearm with a displaced transverse fracture of the distal radius with mild dorsal deviation. There is a vertical lucency extending into the adjacent radioscaphoid joint space. IMPRESSION: 1. Slightly displaced intra-articular fracture of distal radius secondary to soft tissue swelling. 2. Other findings about the wrist and hand, please see the above description. Dictated by: Dictated on workstation # [id number]
[2019-06-27] MEDS ORDERED: TRM50T PO (16:04)
== END 2019-06-27 16:09 | disposition home or self-care (01) ==
LOC: EDUNIT# 14:53 → ER 14:54
DX: S52.572A Other intraarticular fracture of lower end of left radius, initial encounter for closed fracture (principal); J44.9 Chronic obstructive pulmonary disease, unspecified; F17.210 Nicotine dependence, cigarettes, uncomplicated; Z85.42 Personal history of malignant neoplasm of other parts of uterus; Z88.1 Allergy status to other antibiotic agents; Z80.1 Family history of malignant neoplasm of trachea, bronchus and lung; Z79.52 Long term (current) use of systemic steroids; W50.0XXA Accidental hit or strike by another person, initial encounter
CPT/HCPCS: 73130

== ENCOUNTER → 2019-06-30 | Outpatient (CLI) | payer MEDICAID ==
[~2019-06-30] MED LIST changes: +TRM50T PO
--- NOTE | 2019-06-30 13:15 | Diagnostic Imaging Report ---
INDICATION: Distal radius fracture, follow-up, new cast placement. TECHNIQUE: Two views of the right wrist. CORRELATION STUDY: 06/27/2019. FINDINGS: Cast material is present, obscuring detail. There is a predominantly transversely oriented fracture of the distal radius again demonstrated. There is lateral and dorsal displacement of the main distal fracture fragment, slightly greater in width of the cortex. Slightly increasing severity of impaction. The severity of offset is relatively stable. No definitive new bony abnormality otherwise demonstrated. Advanced degenerative changes of the first carpometacarpal articulation. IMPRESSION: 1. Transversely oriented slightly impacted displaced distal right radius fracture. The severity of dorsal and lateral displacement and severity of impaction may be very minimally increased. Dictated by: Dictated on workstation # [id number]
== END ==
LOC: ORTHO 09:56
PROVIDERS: ATTEND Orthopaedic Surgery
DX: S52.511D Displaced fracture of right radial styloid process, subsequent encounter for closed fracture with routine healing (principal); Z96.698 Presence of other orthopedic joint implants; X58.XXXD Exposure to other specified factors, subsequent encounter
CPT/HCPCS: 29065; 73100

== ENCOUNTER → 2019-07-12 | Outpatient (CLI) | payer MEDICAID ==
--- NOTE | 2019-07-12 12:00 | Diagnostic Imaging Report ---
INDICATION: Distal radial fracture. COMPARISON: June 30, 2019. TECHNIQUE: Two radiographs of the right wrist dated July 12, 2019. FINDINGS: Cast material is again identified which slightly limits evaluation of underlying osseous structures. Previously noted distal radial fracture is again identified. However, there appears to be slightly increasing lateral and posterior displacement when compared to the prior examination. Degree of impaction also appears slightly increased. No new fracture or dislocation. Scapholunate distance is within normal limits. IMPRESSION: Increasing displacement and impaction of previously noted casted distal radial fracture. Dictated by: Dictated on workstation # [id number]
== END ==
LOC: ORTHO 09:29
PROVIDERS: ATTEND Orthopaedic Surgery
DX: S52.514D Nondisplaced fracture of right radial styloid process, subsequent encounter for closed fracture with routine healing (principal)
CPT/HCPCS: 73100

== ENCOUNTER → 2019-07-26 | Outpatient (CLI) | payer MEDICAID ==
--- NOTE | 2019-07-26 12:06 | Diagnostic Imaging Report ---
INDICATION: Distal radius fracture. TIME OF EXAM: 11:08 AM Correlation is made with prior radiograph from 07/12/2019. Overlying cast has been removed. The impacted comminuted fracture of the distal radius is again noted. There continues to be some radial as well as dorsal displacement of distal radial fracture fragment. Fracture line remains visible. Distal ulna appears to be intact. Carpus and metacarpals are unremarkable. IMPRESSION: Distal radius fracture with some mild displacement, as described. Overall position is similar to examination from 2 weeks earlier. Fracture lines remain visible. Dictated by: Dictated on workstation # [id number]
== END ==
LOC: ORTHO 10:44
PROVIDERS: ATTEND Orthopaedic Surgery
DX: S52.514A Nondisplaced fracture of right radial styloid process, initial encounter for closed fracture (principal)
CPT/HCPCS: 29075; 73100

== ENCOUNTER → 2019-08-09 | Outpatient (CLI) | payer MEDICAID ==
--- NOTE | 2019-08-09 11:15 | Diagnostic Imaging Report ---
INDICATION: Followup radial fracture. COMPARISON STUDY: Right wrist from July 25. FINDINGS: Two views of the right wrist were obtained with the patient's wrist in a fiberglass cast. There has been no change in position or alignment of the radial metaphyseal fracture. Dorsal displacement is stable. A small osteophyte is present off of the radius. Some endosteal callus formation is present. IMPRESSION: There is some mild callus formation along the distal radial fracture. There has been no change in position or alignment. Dictated by: Dictated on workstation # [id number]
--- NOTE | 2019-08-09 11:52 | Diagnostic Imaging Report ---
INDICATION: Distal radius fracture, followup TECHNIQUE: 2 views of the right wrist CORRELATION STUDY: 08/09/2019 FINDINGS: Cast has been removed. Distal radius fracture is again demonstrated. There is dorsal displacement approximately 1/3rd width of the bone. Fracture line still present with some reparative changes suggested. Additional old ununited radial styloid process fracture. Distal ulna intact. Carpal bones with degenerative change but otherwise unremarkable. IMPRESSION: 1. Dorsally displaced distal right radius fracture is again demonstrated. Fracture line remains present but with suggestion of slight interval healing from previous study. Alignment unchanged. Dictated by: Dictated on workstation # [id number]
== END ==
LOC: ORTHO 10:50
PROVIDERS: ATTEND Orthopaedic Surgery
DX: S52.514D Nondisplaced fracture of right radial styloid process, subsequent encounter for closed fracture with routine healing (principal)
CPT/HCPCS: 73100

== ENCOUNTER → 2019-08-23 | Outpatient (CLI) | payer MEDICAID ==
--- NOTE | 2019-08-23 11:23 | Diagnostic Imaging Report ---
INDICATION: Followup of radial fracture on the right. COMPARISON: 08/09/2019. EXAMINATION: Right wrist, 2 views. FINDINGS: There is a mildly impacted dorsally displaced fracture of the metaphysis of the radius which is unchanged in position. There has been some early callus formation develop and progress since the previous exam. The fracture line is still visible. The radiocarpal joint is in good alignment. Moderate degenerative changes are noted of the carpal bones. IMPRESSION: The mildly impacted and dorsally displaced fracture of the distal radial shaft shows no change in position with some progressive callus formation. Dictated by: Dictated on workstation # [id number]
== END ==
LOC: ORTHO 10:46
PROVIDERS: ATTEND Orthopaedic Surgery
DX: S52.514D Nondisplaced fracture of right radial styloid process, subsequent encounter for closed fracture with routine healing (principal)
CPT/HCPCS: 73100